=== PATIENT | female | born 1970 | race Caucasian/White ===

== ENCOUNTER → 2017-10-25 13:32 | Outpatient (CLI) | payer SELFPAY ==
--- NOTE | 2017-10-25 13:34 | RAD_ITS ---
STUDY: X-RAY - LEFT WRIST REASON FOR EXAM: Female, 47 years old. Fracture TECHNIQUE: 3 view(s) of the wrist were obtained. COMPARISON: October 14, 2017 and October 07, 2017 FINDINGS: Stable fractures of the distal radius and ulna. Normal radiocarpal articulation. Normal distal radioulnar articulation. Normal carpal bones. Normal carpal articulations. Normal carpometacarpal articulation of the thumb. Normal second through fifth carpometacarpal articulations. Normal visualized metacarpal bones. There is casting material. RAD/Wrist min 3 Views IMPRESSION: Stable fractures. Electronically Signed: Philipp Mccann MD at 9:08 EST , Service support ,
== END ==
PROVIDERS: PCP Family Medicine; Visit Provider Orthopaedic Surgery
DX: M25.532 Pain in left wrist (principal)
CPT/HCPCS: 73110

== ENCOUNTER → 2017-11-15 12:42 | Outpatient (CLI) | payer SELFPAY ==
--- NOTE | 2017-11-15 12:43 | RAD_ITS ---
STUDY: X-RAY - LEFT WRIST REASON FOR EXAM: Female, 47 years old. Cast removal. TECHNIQUE: 3 view(s) of the wrist were obtained. COMPARISON: Comparison is made with prior examination dated October 25, 2017. FINDINGS: Healing fracture of the distal radial metaphysis. The alignment is maintained. Avulsion fracture of the ulnar styloid. Normal radiocarpal articulation. Normal distal radioulnar articulation. Normal carpal bones. Normal carpal articulations. Normal carpometacarpal articulation of the thumb. Normal second through fifth carpometacarpal articulations. Normal visualized metacarpal bones. The soft tissue structures are unremarkable. RAD/Wrist min 3 Views IMPRESSION: Healing distal radial fracture. The alignment is maintained. Electronically Signed: Alejandro Mariee MD at 15:57 EST Tel [phone], Service support ,
== END ==
PROVIDERS: PCP Family Medicine; Visit Provider Orthopaedic Surgery
DX: S52.502D Unspecified fracture of the lower end of left radius, subsequent encounter for closed fracture with routine healing (principal); S52.602D Unspecified fracture of lower end of left ulna, subsequent encounter for closed fracture with routine healing
CPT/HCPCS: 73110

== ENCOUNTER → 2017-12-13 12:38 | Outpatient (CLI) | payer SELFPAY ==
--- NOTE | 2017-12-13 12:40 | RAD_ITS ---
STUDY: X-RAY - LEFT WRIST REASON FOR EXAM: Female, 47 years old. Fracture. TECHNIQUE: 3 view(s) of the wrist were obtained. COMPARISON: 11/15/2017. FINDINGS: There is a sclerotic band across the distal radial metaphysis consistent with healing fracture. Fracture line is no longer evident. No displacement. No significant impaction. There is dorsal angulation of the articular surface. Diffuse to mineralization. IMPRESSION: Essentially healed distal radial metaphyseal fracture. Electronically Signed: Elier Mcintyre MD at 19:37 EDT , Service support , RAD/Wrist min 3 Views
== END ==
PROVIDERS: PCP Family Medicine; Visit Provider Orthopaedic Surgery
DX: S52.502D Unspecified fracture of the lower end of left radius, subsequent encounter for closed fracture with routine healing (principal); S52.602D Unspecified fracture of lower end of left ulna, subsequent encounter for closed fracture with routine healing
CPT/HCPCS: 73110

== ENCOUNTER → 2018-12-19 08:41 | Outpatient (CLI) | payer SELFPAY ==
[2018-12-18 14:07] VITALS: BMI 19.7
--- NOTE | 2018-12-19 09:00 | RAD_ITS ---
STUDY: X-RAY CHEST REASON FOR EXAM: Female, 48 years old. Chest pain TECHNIQUE: 2 view COMPARISON: None. FINDINGS: The lungs are clear and expanded. There is no demonstrated pleural abnormality. Normal size heart. Normal mediastinum and camille. Normal visualized pulmonary arteries. Normal visualized aortic arch and descending thoracic aorta. Normal visualized thoracic spine. Normal visualized ribs, clavicles, and shoulders. There is no demonstrated abnormality of the visualized soft tissue structures of the upper abdomen. RAD/Chest PA and Lateral IMPRESSION: Normal x-ray examination of the chest. No acute findings in the lungs Electronically Signed: Manuel Holcomb MD at 5:02 EDT Tel , Service support ,
[2018-12-19 09:35] LABS: Absolute Lymphocyte Count 1.74 X10^3/ul (0.83-4.51); Absolute Neutrophil Count 3.2 X10^3/uL (2.0-7.7); Basophil# 0.03 X10^3/uL; Basophil% 0.5 % (0-1); Eosinophil# 0.09 X10^3/uL; Eosinophils% 1.6 % (0-5); Hematocrit 44.1 % (37-47); Lymphocyte # 1.74 X10^3/ul (4.0); Lymphocyte % 31.7 % (19-41); Mean Corp Hgb Conc 31.7 g/gl (32-36); Mean Corpuscular Hgb 29.8 pg (27.0-32.0); Mean Corpuscular Volume 93.8 fL (81-99); Monocyte# 0.46 X10^3/uL; Monocyte% 8.4 % (0-10); Neutrophil # 3.16 X10^3/uL (2.7-7.7); Neutrophil % 57.6 % (47-70); Platelet Count 222 K/mm3 (150-450); RBC Distribution Width CV 12.8 % (11.6-14.6); RBC Distribution Width SD 42.7 fl (35.1-43.9); White Blood Count 5.5 K/mm3 (4.4-11.0)
[2018-12-19 09:37] LABS: Anion Gap 6 (5-15); BUN 15 mg/dL (7-18); BUN/Creat Ratio 22.2 RATIO (10-20); Calcium,Total 10.9 mg/dL (8.5-10.1); Chloride 108 mmol/L (98-107); Creatinine, Serum 0.68 mg/dL (0.55-1.02); EST Glomerular Filtration Rate 99 mL/min (>60); Est Glom Filt Rate - Afr Amer 119 mL/min (>60); Glucose 97 mg/dL (74-106); POSITIVE COUNT NO; POSITIVE DIFFERENTIAL NO; POSITIVE MORPHOLOGY NO; Potassium 4.1 mmol/L (3.5-5.1); Sodium Level 143 mmol/L (136-145)
== END ==
PROVIDERS: Family Provider Family Medicine; PCP Family Medicine; Referring Provider Family Medicine; Visit Provider Family Medicine
DX: R07.9 Chest pain, unspecified (principal); D64.9 Anemia, unspecified
CPT/HCPCS: 36415; 71046; 80048; 85025

== ENCOUNTER → 2018-12-22 11:48 | Outpatient (CLI) | payer SELFPAY ==
[2018-12-18 14:07] VITALS: BMI 19.7
[2018-12-22 14:09] LABS: PTHIN 115.8 pg/mL (18.4-80.1)
== END ==
PROVIDERS: Family Provider Family Medicine; PCP Family Medicine; Referring Provider Family Medicine; Visit Provider Family Medicine
DX: E83.52 Hypercalcemia (principal)
CPT/HCPCS: 36415; 83970

== ENCOUNTER 2019-10-22 03:39 | Emergency (ER) | payer OTHER, SELFPAY ==
[2018-12-18 14:07] VITALS: BMI 19.7
[2019-10-22 03:40] VITALS: BP 142/72; PULSE 75; RESP 16; TEMP 36.8; O2SAT 98; BMI 21.7
--- NOTE | 2019-10-22 03:47 | RAD_ITS ---
STUDY: X-RAY - RIGHT FOOT CLINICAL: Female, 49 years old. FELL -- C/O BRUISING AND SWELLING AREA OF DISTAL RT 3-4 METATARSALS TECHNIQUE: 3 view(s) of the foot. COMPARISON: None. FINDINGS: There is a plantar calcaneal spur and there is a posterior calcaneal enthesophyte at the insertion site of the Achilles'' tendon. Otherwise normal talus, calcaneus, and tarsal bones, Normal visualized subtalar, talonavicular, calcaneocuboid, tarsal and tarsometatarsal articulations. Normal metatarsi. Normal metatarsophalangeal joint of the great toe. Normal tibial and fibular sesamoid bones. Normal interphalangeal joint of the great toe. Normal phalanges of the great toe. Normal second through fifth metatarsophalangeal joints. Normal interphalangeal joints and phalanges of the lesser toes. There is nonspecific soft tissue swelling. RAD/Foot min 3 Views IMPRESSION: No demonstrated fracture, dislocation, or destructive osseous lesion. Electronically Signed: Adam Donis MD at 4:32 EST , Service support ,
--- NOTE | 2019-10-22 03:48 | ED.VIS.GEN ---
History of Present Illness Chief Complaint: Lower Extremity Injury Narrative: This patient is a 49-year-old female who presents with a right foot injury. She went to get out of bed and her leg was asleep which caused her to fall onto her right side. She did not hit her head there was no loss of consciousness no headache or vomiting. She is not anticoagulated. She initially had some mild discomfort at her hip and knee but that seems to be all right now. She had taken ibuprofen and wrapped her foot but it became more painful and she noted significant bruising and swelling so called EMS to be brought here for evaluation. She denies medical history and takes no daily medications except vitamin supplements. Past Medical History - Allergies and Home Meds Allergies/Adverse Reactions: Allergies chlorpheniramine [From [facility]] Allergy (Unknown, Verified 10/22/19 03:44) Unknown phenylephrine [From [facility]] Allergy (Unknown, Verified 10/22/19 03:44) Unknown pseudoephedrine [From [facility]] Allergy (Unknown, Verified 10/22/19 03:44) Unknown pyrilamine [From [facility]] Allergy (Unknown, Verified 10/22/19 03:44) Unknown scopolamine [From [facility]] Allergy (Unknown, Verified 10/22/19 03:44) Unknown sertraline [From Zoloft] Allergy (Verified 10/22/19 03:44) Unknown Sulfa (Sulfonamide Antibiotics) Allergy (Verified 10/22/19 03:44) Unknown Primary Care Physician: Matthew Kolb DO [Primary Care Provider] - Past Medical History: None Smoking Status: Never smoker Review of Systems All systems negative except as indicated General: Denies: Fever Cardiovascular: Denies: Chest pain Respiratory: Denies: Dyspnea Gastrointestinal: Denies: Abdominal pain Musculoskeletal: Reports: - - Right foot pain Neurological: Denies: Headache Physical Exam Vital Signs/Narrative: Vital Signs Temp Pulse Resp BP Pulse Ox 10/22/19 03:40 98.3 F 75 16 142/72 H 98 Inital Vital Signs reviewed: Yes General: Well nourished, Well developed Head: Normocephalic Eyes: EOMI ENT: Moist mucous membranes Neck: Supple Cardiovascular: Regular rate, Regular rhythm Respiratory: No distress Extremities: - - Soft tissue swelling and ecchymosis of the right distal foot near the third fourth and fifth MTPs no focal bony tenderness or bony deformity normal motor function brisk capillary refill normal sensation light touch easily palpable dorsalis pedis pulse Skin: Normal color Neurological: Alert Psychological: Normal affect Diagnostic/Tx/Re-eval Impressions Foot X-Ray 10/22/19 03:47 IMPRESSION: No demonstrated fracture, dislocation, or destructive osseous lesion. Electronically Signed: Adam Donis MD at 4:32 EST , Service support , 10/22/19 03:47 Foot min 3 Views [RAD] Stat - Medical Decision Making X-ray was read as negative. However on my review I am concerned for a possible distal fifth metatarsal fracture. Patient was placed in a postoperative shoe. Patient given crutches. Patient advised to follow-up with orthopedics and was discharged home. ED Disposition - Plan for ED Patient: Disposition: Home or Assisted Living Diagnosis: Fracture of 5th metatarsal Instructions: FRACTURE, Foot Referrals: Matthew Kolb DO [Primary Care Provider] - Srinivasan Montejo DO [STAFF PHYSICIAN] -
[2019-10-22 04:56] VITALS: BP 140/68; PULSE 74; RESP 18; O2SAT 98
== END 2019-10-22 05:45 | disposition home or self-care (01) ==
PROVIDERS: Emergency Provider Emergency Medicine; PCP Family Medicine
DX: S92.351A Displaced fracture of fifth metatarsal bone, right foot, initial encounter for closed fracture (principal); W06.XXXA Fall from bed, initial encounter; Y93.9 Activity, unspecified; Y92.9 Unspecified place or not applicable; Y99.9 Unspecified external cause status; Z88.2 Allergy status to sulfonamides
CPT/HCPCS: 73630; 99284

== ENCOUNTER → 2020-06-14 09:25 | Outpatient (CLI) | payer OTHER, SELFPAY ==
[2020-06-14 09:10] VITALS: BMI 21.7
[2020-06-14 12:40] LABS: PTHIN 65.6 pg/mL (18.4-80.1)
[2020-06-14 17:30] LABS: Xtra Tube EP Lab EXTRA TUBE
== END ==
PROVIDERS: PCP Family Medicine; Visit Provider Family Medicine
DX: E20.9 Hypoparathyroidism, unspecified (principal)
CPT/HCPCS: 36415; 82306; 83970

== ENCOUNTER → 2020-09-13 13:52 | Outpatient (CLI) | payer OTHER, SELFPAY ==
[2020-09-13 08:13] VITALS: BMI 20.6
== END ==
PROVIDERS: PCP Family Medicine; Referring Provider Internal Medicine; Visit Provider Internal Medicine
DX: R05 Cough (principal); R50.9 Fever, unspecified
CPT/HCPCS: 87635; U0003

== ENCOUNTER 2021-05-15 19:27 | Emergency (ER) | payer BC, SELFPAY ==
[2021-04-12 17:23] VITALS: BMI 21.7
[2021-05-15 19:27] VITALS: BP 157/79; PULSE 86; RESP 16; TEMP 37.1; O2SAT 98; BMI 20.6
--- NOTE | 2021-05-15 19:43 | RAD_ITS ---
STUDY: X-RAY - LEFT SCAPULA REASON FOR EXAM: Female, 50 years old. Fall down steps TECHNIQUE: Multiple view(s) of the scapula were obtained. COMPARISON: None. FINDINGS: Normal scapula, including the osseous glenoid rim, acromion, scapular neck, spine, coracoid process, and visualized body. Normal glenohumeral articulation. Normal acromioclavicular joint. Normal visualized humeral head. Normal visualized pulmonary apex. RAD/Scapula IMPRESSION: Normal plain film x-ray examination of the scapula. However, please note that plain films have low accuracy for detection of fractures and CT is the study of choice if clinically discrepant findings are present. Electronically Signed: Kim Leung MD at 20:48 EDT Tel , Service support ,
--- NOTE | 2021-05-15 19:56 | EDS_ITS ---
HPI HPI - Fall History of Present Illness Chief Complaint: Fall Informant: patient Occured/Mechanism Occurred: Hours Mechanism/Context: Yes slip, No cannot recall fall and No prodromal Fall down steps #: 5 Usually ambulates: Without assistance Pain/Injury Pain Location: back and upper extremity (Left shoulder region) Quality of Pain: Dull and Aching Current Severity: Mild Maximum Severity: Severe Worsened by: Movement of the left upper extremity and torso Relieved by: Remaining still minimizes the discomfort Associated Symptoms Associated Symptoms: Negative for Parasthesias, Weakness, Loss of function, Inability to ambulate, Loss of consciousness and Amnesia Narrative Narrative: Patient is a 50-year-old woman with history of migraine headaches, anemia and fractured wrist who presents because she slipped going down steps and flip-flops on the wet steps. She landed on her left side. She states she has swelling of the lower back complains of central low back pain and swelling with abrasion over the left shoulder region. She denies head trauma. Denies neck pain. She denies paresthesia, anesthesia motors. She denies chest pain or shortness of breath. She also complained of left elbow pain initially. She denies abdominal pain. She denies blood in her urine. She denies problems with her balance. She is not on an anticoagulant. Tetanus Immunization: 5-10 years Prior similar symptoms: No Recent Illness/Hospitalization: No [facility] Medical History Acute maxillary sinusitis, unspecified Anemia Fracture of wrist Migraines Home Medications biotin 800 mcg PO DAILY 10/07/17 [History Last Taken Unknown] ferrous sulfate 27 mg iron tablet 27 mg PO DAILY tab 12/18/18 [History Last Taken Unknown] multivitamin with minerals 1 ea PO DAILY 10/22/19 [History Last Taken Unknown] calcium carbonate 500 mg calcium (1,250 mg) chewable tablet 500 mg PO DAILY 06/14/20 [History Last Taken Unknown] cholecalciferol (vitamin D3) 50 mcg (2,000 unit) capsule 50 mcg PO DAILY 06/14/20 [History Last Taken Unknown] glucosamine sulfate 500 mg tablet 500 mg PO BID 06/14/20 [History Last Taken Unknown] atormml-cczddmlybevbc-bwsdnzxc 250 mg-250 mg-65 mg tablet 1 tab PO ONCE 04/12/21 [History Last Taken Unknown] vitamin E acetate 134 mg (200 unit) capsule unit PO 04/12/21 [History Last Taken Unknown] Allergy/AdvReac Type Severity Reaction Status Date / Time chlorpheniramine Allergy Unknown Unknown Verified 05/15/21 19:30 [From [facility]] phenylephrine [From [facility]] Allergy Unknown Unknown Verified 05/15/21 19:30 pseudoephedrine [From [facility]] Allergy Unknown Unknown Verified 05/15/21 19:30 pyrilamine [From [facility]] Allergy Unknown Unknown Verified 05/15/21 19:30 scopolamine [From [facility]] Allergy Unknown Unknown Verified 05/15/21 19:30 sertraline [From Zoloft] Allergy Unknown Verified 05/15/21 19:30 Sulfa (Sulfonamide Allergy Unknown Verified 05/15/21 19:30 Antibiotics) Family History Father Hypertension Diabetes Arthritis A-fib Grandfather Arthritis Mother Breast cancer Dementia Grandmother Diabetes Grandmother CVA (cerebral vascular accident) Surgical History History of bilateral tubal ligation Social History Smoking Status: Never smoker alcohol intake: never substance use type: does not use caffeine: Yes seatbelt use: always do you feel safe at home: Yes 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 ROS ROS ED Constitutional Constitutional ED: Denies chills, fever(s), subjective or sweats Eyes Eyes: Denies blurry vision, change in vision or diplopia ENT ENT ED: Denies ear pain, rhinorrhea or sore throat Cardiovascular Cardiovascular: Denies chest pain, orthopnea, palpitations or racing heartbeat Respiratory/Chest Respiratory/Chest: Denies cough, dyspnea, dyspnea on exertion or orthopnea Gastrointestinal Gastrointestinal: Denies abdominal pain, nausea or vomiting Genitourinary Genitourinary ED: Denies dysuria or hematuria Musculoskeletal Musculoskeletal: Reports back pain; Denies arthralgias, myalgias or neck pain Integumentary Reports Abrasions; Denies abscess or rash Neurologic Neurologic: Denies paresthesias or weakness Hematologic/Lymphatic Hematologic/Lymphatic: Denies easy bleeding or easy bruising EXAM Physical Exam Const Vital Signs: 05/15/21 19:27 Temperature 98.7 F Temperature Source Temporal Pulse Rate 86 Respiratory Rate 16 Blood Pressure 157/79 H Blood Pressure Mean 105 Pulse Ox 98 Oxygen Delivery Method Room Air Positive well nourished and well developed General Appearance ED: well developed HEENT Reports normocephalic and TM's clear HEENT Narrative: There is no septal deviation hematoma. There is no clinical findings of basal skull fracture. atraumatic; Negative for hematoma Tympanic Membrane ED: Yes TM's clear Eyes PERRL and EOMs intact bilaterally Eyes Narrative: There is no subconjunctival hemorrhage. There is no clinical findings of infraorbital General Eye ED: Negative for pale conjunctiva or scleral icterus Neck full ROM, no lymphadenopathy and supple Neck Narrative: There is no tenderness. She has full range of motion without grimacing or hesitation. Chest Wall inspection of chest normal and palpation of chest normal Resp normal respiratory effort and clear to auscultation bilaterally Cardio regular rate, regular rhythm, S1 normal heart sound, S2 normal heart sound and no murmurs GI non-tender, non-distended and no masses GI Narrative: There is no pain no patient of the pelvis. Auscultation: normoactive bowel sounds Palpation: soft Back/Spine no CVA tenderness Back/Spine Narrative: There is a hematoma noted over the lower lumbar region and a small abrasion. Cervical Spine: Negative for cervical spine tenderness Thoracic Spine / Upper Back: Negative for thoracic spinal tenderness Lumbar Spine / Lower Back: lumbar spinal tenderness L2, L3, L4 and L5 Extremity normal to inspection, full ROM, normal capillary refill, no joint enlargement and no clubbing, cyanosis or edema Extremity Narrative: There is soft tissue swelling and tenderness over the spinous process of left scapula. There is no pain the patient over the lateral or medial epicondyle. Is no pain the patient over the olecranon process. There is no pain the patient with a radial head with supination pronation. General Extremety ED: Yes normal exam except as noted General Extremity: normal exam except as noted Right Upper Extremity: Negative for shoulder joint, clavicle, bony scapula, upper arm, elbow joint, lower arm, wrist or hand and digits Left Upper Extremity: bony scapula; Negative for shoulder joint, clavicle, upper arm, elbow joint, lower arm, wrist or hand and digits Right Lower Extremity: No hip joint, No upper leg, No knee joint, No lower leg, No ankle joint and No foot and digits Left Lower Extremity: No hip joint, No upper leg, No knee joint, No lower leg, No ankle joint and No foot and digits Neuro oriented x3, CN's II-XII intact bilaterally, moves all extremities and no sensory deficits noted Neuro Narrative: Axillary, median, radial and ulnar function intact. Jhoan Coma Scale: document GCS findings Spontaneous Obeys Commands Oriented 15 Sensorium / Orientation: alert Motor Exam: strength 5/5 throughout Psych mental status grossly normal and thought process normal Skin Lesions: no lesions Rashes: no rashes Trauma: abrasion MDM MDM MDM Narrative Medical decision making narrative: Since there is obvious trauma over the lumbar region x-ray was obtained to evaluate for fracture and x-ray of the scapula was obtained to evaluate for fracture as well. Patient was offered pain medicine, which she declined. Radiography Diagnostic Testin. Three-view x-ray of the LS-spine reveals no fracture, subluxation or dislocation. There is no evidence of spondylolisthesis or spondylolisthesis. There is no calcification of the aorta. The spaces are symmetric. 2. Three-view x-ray of the scapula reveals no fracture or abnormality. There is no evidence of rib fracture. There is no evidence of pneumothorax involving the apices of the left chest. Discharge Plan Triage Chief Complaint: Fall ED Provider: Jarred Preciado Dx/Rx/DC Orders Clinical Impression: Contusion of lower back and pelvis, initial encounter, Contusion of left scapular region Prescriptions: No Action ferrous sulfate 27 mg iron tablet 27 mg PO DAILY RF: 0 cholecalciferol (vitamin D3) 50 mcg (2,000 unit) capsule 50 mcg PO DAILY RF: 0 glucosamine sulfate [Glucosamine] 500 mg tablet 500 mg PO BID RF: 0 calcium carbonate [Calcium 500] 500 mg calcium (1,250 mg) tablet,chewable 500 mg PO DAILY RF: 0 vitamin E acetate 200 unit capsule PO RF: 0 Excedrin Migraine 250-250-65 mg tablet 1 tab PO ONCE RF: 0 biotin 800 MCG tablet 800 mcg PO DAILY RF: 0 multivitamin with minerals 1 EACH tablet 1 ea PO DAILY RF: 0 Primary Care Provider: Matthew Kolb Referrals: Matthew Kolb, DO [Primary Care Provider] - 1 Week if not improving Activity Restrictions/Additional Instructions: 1. Apply ice 6-8 times a day 2. You may take either 4 ibuprofen tablets every 8 hours for the next 3 to 5 days for pain or to Aleve tablets every 12 hours for the next 3 to 5 days for pain. 3. You may feel worse it hurt in more places and you presently do Disposition Disposition: Home, Self Care
--- NOTE | 2021-05-15 20:05 | RAD_ITS ---
STUDY: X-RAY - LUMBAR SPINE REASON FOR EXAM: Female, 50 years old. Injury/Pain TECHNIQUE: 3 view(s) of the lumbar spine were obtained. COMPARISON: None FINDINGS: Normal lumbar lordosis. There is no substantial scoliosis. There is a normal alignment of the vertebrae. Normal vertebral bodies and endplates. Normal disc space heights. The soft tissue structures are unremarkable. RAD/Lumbar Spine 2 or 3 Views IMPRESSION: Normal x-ray examination of the lumbar spine. Electronically Signed: Kim Leung MD at 20:53 EDT Tel , Service support ,
[2021-05-15] MEDS: Naproxen 250 MG Tablet 500 MG PO (20:57)
== END 2021-05-15 21:05 | disposition home or self-care (01) ==
PROVIDERS: Emergency Provider Emergency Medicine; PCP Family Medicine
DX: S40.012A Contusion of left shoulder, initial encounter (principal); S30.0XXA Contusion of lower back and pelvis, initial encounter; S40.212A Abrasion of left shoulder, initial encounter; W10.9XXA Fall (on) (from) unspecified stairs and steps, initial encounter; D64.9 Anemia, unspecified; J01.00 Acute maxillary sinusitis, unspecified; Z79.82 Long term (current) use of aspirin; Z79.899 Other long term (current) drug therapy; Z23 Encounter for immunization
CPT/HCPCS: 72100; 73010; 91303; 99283

== ENCOUNTER → 2021-07-27 09:07 | Outpatient (CLI) | payer BC, SELFPAY ==
[2021-07-27 12:00] LABS: Absolute Lymphocyte Count 1.51 X10^3/uL (0.83-4.51); Basophil# 0.06 X10^3/uL; Eosinophil# 0.13 X10^3/uL; Eosinophils% 2.1 % (0-5); Hematocrit 41.7 % (37-47); Hemoglobin 13.6 g/dL (12.0-15.0); Lymphocyte # 1.51 X10^3/ul (0.83-4.51); Lymphocyte % 24.4 % (19-41); Mean Corp Hgb Conc 32.6 g/dL (32-36); Mean Corpuscular Hgb 30.9 pg (27.0-32.0); Mean Corpuscular Volume 94.8 fL (81-99); Mean Platelet Vol. 11.1 fl (6.2-12.0); Monocyte# 0.47 X10^3/uL; Monocyte% 7.6 % (0-10); NRBC Flagged by Analyzer 0 % (0-5); Neutrophil # 3.98 X10^3/uL (2.7-7.7); Neutrophil % 64.4 % (47-70); Platelet Count 251 K/mm3 (150-450); RBC Distribution Width CV 11.9 % (11.6-14.6); RBC Distribution Width SD 41.2 fl (35.1-43.9); White Blood Count 6.2 K/mm3 (4.4-11.0)
[2021-07-27 12:26] LABS: ALB/GLOB Ratio 0.9 RATIO (0.9-2.4); AST(SGOT) 21 U/L (15-37); Alanine Aminotransfer ALT/SGPT 32 U/L (13-56); Albumin, Serum 3.7 g/dL (3.2-5.0); Alkaline Phosphatase 95 U/L (45-117); Amylase 43 U/L (25-115); Anion Gap 6 (5-15); BUN 16 mg/dL (7-18); BUN/Creat Ratio 20.9 RATIO (10-20); Calcium,Total 11.9 mg/dL (8.5-10.1); Chloride 107 mmol/L (98-107); Cholesterol 176 mg/dL (200); Creatinine, Serum 0.76 mg/dL (0.55-1.02); EST Glomerular Filtration Rate 85 mL/min (>60); Est Glom Filt Rate - Afr Amer 102 mL/min (>60); Ferritin 280 ng/mL (8-252); Glucose 114 mg/dL (74-106); High Density Lipoprotein 50 mg/dL; Iron 140 ug/dL (50-170); Lipase 66 U/L (73-393); Potassium 4.1 mmol/L (3.5-5.1); Protein, Total 7.7 g/dL (6.4-8.2); Sodium Level 140 mmol/L (136-145); Triglycerides 143 mg/dL; Very Low Density Lipoprotein 29 mg/dL (5-40)
== END ==
PROVIDERS: PCP Family Medicine; Referring Provider Physician Assistant; Visit Provider Physician Assistant
DX: R10.9 Unspecified abdominal pain (principal); R11.0 Nausea
CPT/HCPCS: 36415; 80053; 80061; 82150; 82728; 83540; 83690; 85025

== ENCOUNTER → 2021-09-28 07:17 | Outpatient (CLI) | payer BC, SELFPAY ==
--- NOTE | 2021-09-28 07:19 | BI_ITS ---
MAMMOGRAPHY - BILATERAL SCREENING 3-D TOMOSYNTHESIS REASON FOR EXAM: Female, 50 years old. screening PERTINENT HISTORY: No significant family history. TECHNIQUE: 2-D mammograms and 3-D Tomosynthesis of the breast (s) were performed. CAD was performed. COMPARISON: None. FINDINGS: The breast composition is heterogeneously dense that can obscure small breast masses. Scattered benign calcifications are seen. No dense spiculated masses or suspicious microcalcifications are identified. No architectural distortion is identified. There is no skin thickening or retraction. There has been no significant change since the prior study. BI/SCRN MAMM (CAD)W/BÁRBARA BILAT IMPRESSION: No mammographic signs of malignancy. Routine yearly mammograms recommended. ASSESSMENT CATEGORY: BIRADS Category 1: Negative. A letter regarding these results will be sent to the patient by the facility within 30 days. FOLLOW UP RECOMMENDATION: Yearly follow up mammogram recommended. (A) Approximately 10% of breast cancers are not detected by mammography. A normal mammogram should not delay biopsy of a clinically suspicious abnormality. Electronically Signed: Fili Claudio MD at 9:37 EST Tel , Service support ,
== END ==
PROVIDERS: PCP Family Medicine; Visit Provider Family Medicine
DX: Z12.31 Encounter for screening mammogram for malignant neoplasm of breast (principal)
CPT/HCPCS: 77063; 77067

== ENCOUNTER 2022-01-05 08:29 | Outpatient (CLI) | payer BC, SELFPAY ==
[2022-01-05 10:41] LABS: Absolute Lymphocyte Count 1.65 X10^3/uL (0.83-4.51); Absolute Neutrophil Count 3.8 X10^3/uL (2.0-7.7); Basophil# 0.05 X10^3/uL; Basophil% 0.8 % (0-1); Eosinophil# 0.11 X10^3/uL; Eosinophils% 1.8 % (0-5); Hematocrit 42.7 % (37-47); Hemoglobin 13.9 g/dL (12.0-15.0); Lymphocyte # 1.65 X10^3/ul (0.83-4.51); Mean Corp Hgb Conc 32.6 g/dL (32-36); Mean Corpuscular Hgb 30.8 pg (27.0-32.0); Mean Corpuscular Volume 94.5 fL (81-99); Mean Platelet Vol. 11.2 fl (6.2-12.0); Monocyte# 0.51 X10^3/uL; Monocyte% 8.3 % (0-10); NRBC Flagged by Analyzer 0 % (0-5); Neutrophil # 3.79 X10^3/uL (2.7-7.7); Neutrophil % 61.9 % (47-70); Platelet Count 230 K/mm3 (150-450); RBC Distribution Width CV 11.9 % (11.6-14.6); RBC Distribution Width SD 41.6 fl (35.1-43.9); Red Blood Count 4.52 M/mm3 (4.2-5.4); White Blood Count 6.1 K/mm3 (4.4-11.0)
[2022-01-05 10:43] LABS: Troponin-I HS < 3 pg/mL (3.0-54.0)
[2022-01-05 10:53] LABS: ALB/GLOB Ratio 0.9 RATIO (0.9-2.4); AST(SGOT) 20 U/L (15-37); Alanine Aminotransfer ALT/SGPT 41 U/L (13-56); Albumin, Serum 3.7 g/dL (3.2-5.0); Alkaline Phosphatase 104 U/L (45-117); Anion Gap 5 (5-15); BUN 17 mg/dL (7-18); BUN/Creat Ratio 22.7 RATIO (10-20); Calcium,Total 11.4 mg/dL (8.5-10.1); Chloride 109 mmol/L (98-107); Creatinine, Serum 0.75 mg/dL (0.55-1.02); EST Glomerular Filtration Rate 86 mL/min (>60); Est Glom Filt Rate - Afr Amer 104 mL/min (>60); Glucose 104 mg/dL (74-106); Potassium 3.9 mmol/L (3.5-5.1); Protein, Total 7.7 g/dL (6.4-8.2); Sodium Level 141 mmol/L (136-145); Thyroid Stim Hormone (TSH) 2.86 uIU/mL (0.358-3.74)
== END 2022-01-05 23:59 | disposition home or self-care (01) ==
LOC: BIMLAB 08:30
PROVIDERS: PCP Family Medicine; Referring Provider Physician Assistant; Visit Provider Physician Assistant
DX: R68.89 Other general symptoms and signs (principal)
CPT/HCPCS: 36415; 80053; 84443; 84484; 85025

== ENCOUNTER 2022-01-05 08:49 | Outpatient (CLI) | payer BC, SELFPAY ==
--- NOTE | 2022-01-05 08:53 | EKG12_ITS ---
Test Reason : CP Blood Pressure : / mmHG Vent. Rate : 057 BPM Atrial Rate : 057 BPM P-R Int : 142 ms QRS Dur : 084 ms QT Int : 370 ms P-R-T Axes : 041 068 062 degrees QTc Int : 360 ms Sinus bradycardia Otherwise normal ECG Confirmed by CRUZ BOOTHE, GEOFF ([id number]), publications editor BRETT MELO ([id number]) on 01/05/2022 11:21:31 AM Referred By: Kaylie Jaramillo Confirmed By:GEOFF ARROYO MD
== END 2022-01-05 23:59 | disposition home or self-care (01) ==
LOC: PSN 08:50
PROVIDERS: PCP Family Medicine; Referring Provider Physician Assistant; Visit Provider Physician Assistant
DX: R07.9 Chest pain, unspecified (principal); R00.1 Bradycardia, unspecified
CPT/HCPCS: 93005

== ENCOUNTER → 2022-02-21 | Outpatient (CLI) | payer BC, SELFPAY | END | disposition home or self-care (01) | LOC: LABSPEC 09:12 | PROVIDERS: PCP Family Medicine; Referring Provider Physician Assistant; Visit Provider Physician Assistant | DX: R05.9 Cough, unspecified (principal) | CPT/HCPCS: 87635; U0003; U0005 ==

== ENCOUNTER → 2022-09-25 | Outpatient (CLI) | payer BC, SELFPAY ==
[2022-09-25 15:29] LABS: Vitamin D,25 Hydroxy 33.4 ng/mL
== END | disposition home or self-care (01) ==
LOC: MTLAB 11:44
PROVIDERS: PCP Family Medicine; Referring Provider Family Medicine; Visit Provider Family Medicine
DX: E83.52 Hypercalcemia (principal)
CPT/HCPCS: 36415; 82306

== ENCOUNTER → 2022-09-27 | Outpatient (CLI) | payer BC, SELFPAY ==
[2022-09-28 07:55] LABS: PTHIN 113.5 pg/mL (18.4-80.1)
== END | disposition home or self-care (01) ==
LOC: MTLAB 11:47
PROVIDERS: PCP Family Medicine; Referring Provider Family Medicine; Visit Provider Family Medicine
DX: E83.52 Hypercalcemia (principal)
CPT/HCPCS: 36415; 83970

== ENCOUNTER → 2022-10-05 | Outpatient (CLI) | payer BC, SELFPAY ==
--- NOTE | 2022-10-05 10:18 | BI_ITS ---
MAMMOGRAPHY - BILATERAL SCREENING REASON FOR EXAM: Female, 51 years old. Routine annual screening examination. PERTINENT HISTORY: Mother with breast cancer. TECHNIQUE: Digital bilateral breast bárbara (3D mammographic acquisition) in the CC and MLO projections. 2-D mediolateral oblique (MLO) and craniocaudad (CC) views of both breasts were obtained. CAD: Full Field Digital Mammography with Computer Added Detection was performed. COMPARISON: Comparison is made with prior study dated 09/28/2021. FINDINGS: Breast Composition: The breasts are heterogeneously dense, which may obscure small masses. There are no dominant masses or suspicious calcifications. Stable small benign-appearing bilateral axillary No other significant abnormalities are identified. There has been no significant change since the prior study. BI/SCRN MAMM (CAD)W/BÁRBARA BILAT IMPRESSION: Stable bilateral screening mammogram. Yearly follow-up mammogram recommended. (A) ASSESSMENT CATEGORY: BIRADS Category 2: Benign. A letter regarding these results will be sent to the patient by the facility within 30 days. Approximately 10% of breast cancers are not detected by mammography. A normal mammogram should not delay biopsy of a clinically suspicious abnormality. [id number] Electronically Signed: Alejandro Mariee MD at 12:07 EST ,
== END | disposition home or self-care (01) ==
LOC: OPBI 10:16
PROVIDERS: PCP Family Medicine; Visit Provider Family Medicine
DX: Z12.31 Encounter for screening mammogram for malignant neoplasm of breast (principal); Z80.3 Family history of malignant neoplasm of breast
CPT/HCPCS: 77063; 77067

== ENCOUNTER 2023-03-18 11:46 | Emergency (ER) | payer BC, SELFPAY ==
[2023-03-18 11:47] VITALS: BP 149/72; PULSE 110; RESP 16; TEMP 38.3; O2SAT 96; BMI 21.3
[2023-03-18] MEDS: 0.9% Normal Saline 1,000 ML 1000 ML IV (12:18)
[2023-03-18] MEDS: Ketorolac 30 MG/ML Syringe IV (12:18)
--- NOTE | 2023-03-18 12:42 | CT_ITS ---
HISTORY: Right flank pain. TECHNIQUE: Helically acquired images were obtained of the abdomen and pelvis without oral or IV contrast. A radiation dose optimization technique was used for this scan. 445 images. COMPARISON: None. FINDINGS: LOWER CHEST: Lung bases with mild atelectasis. BOWEL: Mild hiatal hernia. Bowel including appendix nondilated. Moderate stool in the redundant colon. PERITONEUM: No significant free fluid. LIVER/SPLEEN: Liver 21 cm in length. Spleen 14 cm in length. GALLBLADDER/BILIARY TREE: Gallbladder present. KIDNEYS AND URETERS: Moderate right hydroureteronephrosis and perinephric inflammation secondary to two 2 mm distal ureteral calculi and a 3 mm ureterovesical junction calculus. No left nephrolithiasis or hydronephrosis. PANCREAS/ADRENAL GLANDS: Nonenlarged. VESSELS: No abdominal aortic aneurysm. PELVIC ORGANS: Trace air in the urinary bladder. BONES: Degenerative changes of the hips. CT/Abdomen/Pelvis without Cont IMPRESSION: Moderate right hydronephrosis secondary to 2 mm distal ureteral and 3 mm UVJ calculi. Hepatosplenomegaly. Electronically Signed: Jeanne Rosen MD at 13:16 EDT ,
[2023-03-18 12:43] LABS: Absolute Lymphocyte Count 0.62 X10^3/uL (0.83-4.51); Absolute Neutrophil Count 12.5 X10^3/uL (2.0-7.7); Basophil# 0.04 X10^3/uL; Basophil% 0.3 % (0-1); Eosinophil# 0.02 X10^3/uL; Eosinophils% 0.1 % (0-5); Hematocrit 38.6 % (37-47); Hemoglobin 12.2 g/dL (12.0-15.0); Lymphocyte # 0.62 X10^3/ul (0.83-4.51); Lymphocyte % 4.5 % (19-41); Mean Corp Hgb Conc 31.6 g/dL (32-36); Mean Corpuscular Hgb 29.7 pg (27.0-32.0); Mean Corpuscular Volume 93.9 fL (81-99); Mean Platelet Vol. 10.7 fl (6.2-12.0); Monocyte# 0.59 X10^3/uL; Monocyte% 4.2 % (0-10); NRBC Flagged by Analyzer 0 % (0-5); Neutrophil # 12.53 X10^3/uL (2.7-7.7); Neutrophil % 90.1 % (47-70); Platelet Count 224 K/mm3 (150-450); RBC Distribution Width CV 12.2 % (11.6-14.6); RBC Distribution Width SD 42.2 fl (35.1-43.9); Red Blood Count 4.11 M/mm3 (4.2-5.4); White Blood Count 13.9 K/mm3 (4.4-11.0)
[2023-03-18 12:44] LABS: Anion Gap 6 (5-15); BUN 17 mg/dL (7-18); BUN/Creat Ratio 16.7 RATIO (10-20); Calcium,Total 11.3 mg/dL (8.5-10.1); Chloride 103 mmol/L (98-107); Creatinine, Serum 1.02 mg/dL (0.55-1.02); EST Glomerular Filtration Rate 60 mL/min (>60); Est Glom Filt Rate - Afr Amer 73 mL/min (>60); Estimated Creatinine Clearance 59.71 ml/min; Glucose 173 mg/dL (74-106); Potassium 4.1 mmol/L (3.5-5.1); Sodium Level 134 mmol/L (136-145)
[2023-03-18 13:01] VITALS: BP 126/56; PULSE 94; RESP 18; TEMP 37.7; O2SAT 96
[2023-03-18 13:02] LABS: Mucous, Urine 0 SEEN /hpf (<or=2+)
[2023-03-18 13:03] LABS: Color, Urine Yellow (Yellow); Glucose, Dipstick Normal (Normal); Ketone-Dipstick 5 mg/dl (Negative); Leukocyte Esterase-Dipstick 500 /ul (Negative); Nitrite-Dipstick Negative (Negative); Occult Blood-Urine 25 /ul (Negative); Protein-Dipstick 30 mg/dl (Negative); Specific Gravity, Urine 1.015 (1.002-1.030); Urine Bilirubin Dipstick Negative (Negative); Urine Clarity Sl. Cloudy (Clear); Urine Urobilinogen Normal (Normal); Urine pH 6.5 (5.0 - 8.0)
[2023-03-18 13:10] LABS: Bacteria 2+ /hpf (None Seen); Red Blood Cells-Urine 0-5 SEEN /hpf (0-5); Squamous Epithelial Cells - UA 5-10 SEEN /hpf (5-10); White Blood Cells 50-100 SEEN /hpf (0-5)
[2023-03-18 14:00] VITALS: BP 125/56; PULSE 94; RESP 16; TEMP 37.7; O2SAT 97
[2023-03-18] MEDS: Ceftriaxone 1 GM/50 ML BAG IV (14:28)
[2023-03-18] MEDS: Acetaminophen 500 MG Tablet 1000 MG PO (14:28)
--- NOTE | 2023-03-18 14:47 | EDS_ITS ---
HPI History of Present Illness Chief Complaint: Flank Pain Informant: patient Onset/Context/Timing Onset: Weeks (1) Context: Gradual Onset Timing: Intermittent Quality: Dull Location: Right flank Worsened by: Nothing Relieved by: Vomiting Narrative Narrative: Patient presents with right flank pain that has been getting worse over the last week. Patient states it came on gradually. Patient states it has been intermittent over the last week. Patient states the pain is dull. Patient states the pain is over her right flank area but radiates into the right inguinal area. Patient states her pain did get better after vomiting episode today. Patient states nothing makes it worse. Patient states she did feel lightheaded earlier today with the pain. Patient also admits to a mild cough. Patient denies any fevers or chills. [facility] Medical History Acute maxillary sinusitis, unspecified Anemia Fracture of wrist Migraines Home Medications multivitamin with minerals 1 ea PO DAILY 10/22/19 [History Last Taken Unknown] calcium carbonate 500 mg calcium (1,250 mg) chewable tablet (Calcium 500) 500 mg PO DAILY 06/14/20 [History Last Taken Unknown] cholecalciferol (vitamin D3) 50 mcg (2,000 unit) capsule 50 mcg PO DAILY 06/14/20 [History Last Taken Unknown] glucosamine sulfate 500 mg tablet (Glucosamine) 500 mg PO BID 06/14/20 [History Last Taken Unknown] syqwpev-hhbnxdvuyuwng-cjunzswp 250 mg-250 mg-65 mg tablet (Excedrin Migraine) 1 tab PO ONCE 04/12/21 [History Last Taken Unknown] ascorbate calcium (vitamin C) 500 mg tablet 500 mg PO DAILY 08/09/22 [History Last Taken Unknown] magnesium 200 mg tablet 200 mg PO DAILY 08/09/22 [History Last Taken Unknown] escitalopram oxalate 20 mg tablet 20 mg PO DAILY #90 tabs 10/10/22 [Rx Last Taken Unknown] ciprofloxacin HCl 500 mg tablet 500 mg PO BID #14 TABLETS 03/18/23 [Rx Last Taken Unknown] hydrocodone-acetaminophen 5-325mg 5mg-325mg 1 tab PO Q6H PRN PRN Pain 3 days #10 TABLETS 03/18/23 [Rx Last Taken Unknown] Allergy/AdvReac Type Severity Reaction Status Date / Time chlorpheniramine Allergy Unknown Unknown Verified 03/18/23 11:49 [From AlleRx] phenylephrine [From AlleRx] Allergy Unknown Unknown Verified 03/18/23 11:49 pseudoephedrine [From AlleRx] Allergy Unknown Unknown Verified 03/18/23 11:49 pyrilamine [From AlleRx] Allergy Unknown Unknown Verified 03/18/23 11:49 scopolamine [From AlleRx] Allergy Unknown Unknown Verified 03/18/23 11:49 sertraline [From Zoloft] Allergy Unknown Verified 03/18/23 11:49 Sulfa (Sulfonamide Allergy Unknown Verified 03/18/23 11:49 Antibiotics) Family History Father Hypertension Diabetes Arthritis A-fib Grandfather Arthritis Mother Breast cancer Dementia Grandmother Diabetes Grandmother CVA (cerebral vascular accident) Surgical History History of bilateral tubal ligation Social History Smoking Status: Never smoker alcohol intake: never substance use type: does not use caffeine: Yes seatbelt use: always do you feel safe at home: Yes 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 ROS ROS ED Constitutional Constitutional ED: Denies chills or fever(s) Eyes Eyes: Denies blurry vision or change in vision ENT ENT ED: Denies rhinorrhea or sore throat Cardiovascular Cardiovascular: Denies chest pain or palpitations Respiratory/Chest Respiratory/Chest: Reports cough; Denies dyspnea Gastrointestinal Gastrointestinal: Reports nausea and vomiting Genitourinary Genitourinary ED: Reports urinary frequency; Denies dysuria or hematuria Musculoskeletal Musculoskeletal: Reports back pain; Denies neck pain Integumentary Denies abscess or rash Neurologic Neurologic: Denies headache(s) or weakness Allergic/Immunologic Allergic/Immunologic ED: Denies mouth swelling or urticaria EXAM Physical Exam Const Vital Signs: 03/18/23 11:47 03/18/23 13:01 03/18/23 14:00 Temperature 100.9 F H 99.8 F H 99.9 F H Temperature Source Temporal Temporal Temporal Pulse Rate 110 H 94 94 Respiratory Rate 16 18 16 Blood Pressure 149/72 H 126/56 H 125/56 H Blood Pressure Mean 97 79 79 Pulse Ox 96 96 97 Oxygen Delivery Method Room Air Room Air Room Air Positive well nourished and well developed General Appearance ED: well developed and NAD HEENT Reports moist mucous membranes Neck supple and no JVD Resp normal respiratory effort and clear to auscultation bilaterally Cardio regular rate, regular rhythm and no murmurs GI normal to inspection, nondistended, normoactive bowel sounds and non-tender Palpation: soft Back/Spine General Back: CVA tenderness right Extremity normal to inspection General Extremety ED: Negative for edema or tenderness General Extremity: Negative for edema Neuro oriented x3, CN's II-XII intact bilaterally and no sensory deficits noted Sensorium / Orientation: alert Motor Exam: strength 5/5 throughout Psych mental status grossly normal Skin no rashes or lesions noted MDM MDM MDM Narrative Medical decision making narrative: Differential diagnosis includes pyelonephritis, ureteral calculus, renal calculus, and urinary tract infection. CBC will be obtained to assess for leukocytosis and anemia. Basic metabolic profile will be obtained to assess for electrolyte abnormality and renal function. Urinalysis will be obtained to assess for urinary tract infection and hematuria. CT scan of the abdomen pelvis will be obtained to assess for renal calculus and ureteral calculus. Lab Data Attestation: I reviewed the patient's lab results. Lab results narrative: CBC was reviewed. There is a mild leukocytosis of 13.9. Basic metabolic profile was reviewed and was within normal limits. Urinalysis was reviewed. Leukocyte esterase was 500 with 50-100 white blood cells and 2+ bacteria. Labs: Laboratory Results - last 24 hr 03/18/23 03/18/23 03/18/23 12:20 12:20 12:31 WBC 13.9 H RBC 4.11 L Hgb 12.2 Hct 38.6 MCV 93.9 MCH 29.7 MCHC 31.6 L RDW Std Deviation 42.2 RDW Coeff of Doug 12.2 Plt Count 224 MPV 10.7 Immature Gran % (Auto) 0.800 Neut % (Auto) 90.1 H Lymph % (Auto) 4.5 L [place] % (Auto) 4.2 Eos % (Auto) 0.1 Baso % (Auto) 0.3 Absolute Neuts (auto) 12.5 H Absolute Lymphs (auto) 0.62 L Nucleated RBC % 0 Sodium 134 L Potassium 4.1 Chloride 103 Carbon Dioxide 25.0 Anion Gap 6 BUN 17 Creatinine 1.02 Estim Creat Clear Calc 59.71 Est GFR (MDRD) Af Amer 73 Est GFR (MDRD) Non-Af 60 BUN/Creatinine Ratio 16.7 Glucose 173 H Calcium 11.3 H Urine Color Yellow Urine Clarity Sl. Cloudy Urine pH 6.5 Ur Specific [place] 1.015 Urine Protein 30 H Urine Glucose (UA) Normal Urine Ketones 5 H Urine Occult Blood 25 H Urine Nitrite Negative Urine Bilirubin Negative Urine Urobilinogen Normal Ur Leukocyte Esterase 500 H Urine RBC 0-5 SEEN Urine WBC 50-100 SEEN Ur Squamous Epith Cells 5-10 SEEN Urine Bacteria 2+ Urine Mucus 0 SEEN Radiography Diagnostic Testing: Clinical Impression(s) from Imaging Studies Abdomen/Pelvis CT 03/18/23 12:42 IMPRESSION: Moderate right hydronephrosis secondary to 2 mm distal ureteral and 3 mm UVJ calculi. Hepatosplenomegaly. Electronically Signed: Jeanne Rosen MD at 13:16 EDT Reading Location ID and State: [facility] / [place] Tel , Service support , CT scan of the abdomen and pelvis was obtained. There is moderate right hydronephrosis with 2 distal ureteral calculi measuring 2 mm and a UVJ calculus measuring 3 mm. This was interpreted by the radiologist and was also independently reviewed by myself. Treatment and Re-Evaluation :: Patient was given IV fluids and Toradol here. Patient was given a dose of Tylenol. Patient was feeling better on reevaluation. Patient was advised of her findings. Patient was given a dose of Rocephin here prior to discharge. Patient was given a prescription for Cipro. Patient was instructed to drink plenty of fluids. Patient was instructed to follow-up with her primary care physician in 3 to 5 days. Patient was also given referral for urology for follow-up care in 3 to 5 days. Patient was instructed return if worse in any way. Patient understood and was agreeable with the plan. All questions were answered. Discharge Plan Triage Chief Complaint: Flank Pain ED Provider: Don Diaz Dx/Rx/DC Orders Clinical Impression: Calculus of distal right ureter, Urinary tract infection Instructions: ED Cystitis Female Adult, ED Kidney Stone w/ Colic Prescriptions: New hydrocodone-acetaminophen [hydrocodone-acetaminophen] 5-325 mg tablet 1 tab PO Q6H PRN PRN (Reason: Pain) 3 Days Qty: 10 0RF ciprofloxacin HCl [ciprofloxacin HCl] 500 mg tablet 500 mg PO BID Qty: 14 0RF No Action cholecalciferol (vitamin D3) 50 mcg (2,000 unit) capsule 50 mcg PO DAILY glucosamine sulfate [Glucosamine] 500 mg tablet 500 mg PO BID Rx Instructions: administer with meals calcium carbonate [Calcium 500] 500 mg calcium (1,250 mg) tablet,chewable 500 mg PO DAILY Excedrin Migraine 250-250-65 mg tablet 1 tab PO ONCE ascorbate calcium (vitamin C) 500 mg tablet 500 mg PO DAILY magnesium 200 mg tablet 200 mg PO DAILY multivitamin with minerals 1 EACH tablet 1 ea PO DAILY escitalopram oxalate 20 mg tablet 20 mg PO DAILY Qty: 90 1RF Primary Care Provider: Matthew Kolb Referrals: Matthew Kolb DO [Primary Care Provider] - 5-7 Days Mariza Lambert MD [Med Staff - Active Staff] - 3-5 Days Disposition Disposition: Home, Self Care Discharge Date/Time: 03/18/23 15:11
== END 2023-03-18 15:11 | disposition home or self-care (01) ==
PROVIDERS: Emergency Provider Emergency Medicine; PCP Family Medicine; Visit Provider Emergency Medicine
DX: N20.1 Calculus of ureter (principal); N39.0 Urinary tract infection, site not specified
CPT/HCPCS: 74176; 80048; 81001; 85025; 87077; 87086; 87088; 87186; 96361; 96365; 96375; 99283; J7030; J7050; A4216

== ENCOUNTER → 2023-05-01 | Outpatient (CLI) | payer BC, SELFPAY ==
[2023-05-01 15:50] LABS: Mucous, Urine 0 SEEN /hpf (<or=2+); Red Blood Cells-Urine 0 SEEN /hpf (0-5)
[2023-05-01 16:52] LABS: Color, Urine Yellow (Yellow); Glucose, Dipstick Normal (Normal); Ketone-Dipstick Negative (Negative); Leukocyte Esterase-Dipstick 25 /ul (Negative); Nitrite-Dipstick Negative (Negative); Occult Blood-Urine Negative /ul (Negative); Protein-Dipstick Negative (Negative); Specific Gravity, Urine 1.015 (1.002-1.030); Urine Bilirubin Dipstick Negative (Negative); Urine Clarity Cloudy (Clear); Urine Urobilinogen Normal (Normal)
[2023-05-01 17:01] LABS: Amorphous Sediment 3+; Squamous Epithelial Cells - UA 0-5 SEEN /hpf (5-10); White Blood Cells 0-5 SEEN /hpf (0-5)
[2023-05-01 17:02] LABS: Bacteria RARE /hpf (None Seen)
== END | disposition home or self-care (01) ==
LOC: LABSPEC 15:49
PROVIDERS: PCP Family Medicine; Visit Provider Family Medicine
DX: N20.0 Calculus of kidney (principal)
CPT/HCPCS: 81001

== ENCOUNTER → 2023-06-21 | Outpatient (CLI) | payer BC, SELFPAY ==
--- NOTE | 2023-06-21 15:34 | US_ITS ---
STUDY: THYROID ULTRASOUND REASON FOR EXAM: Female, 52 years old. hyperparathyroid TECHNIQUE: Ultrasound evaluation of the thyroid was performed with real-time and static prescott-scale imaging. COMPARISON: None. FINDINGS: RIGHT LOBE: The right lobe of the thyroid gland measures 3.6 x 0.9 x 1.1 cm. There is a homogeneous echotexture. Nodule 1:11 x 3 x 9 mm solid hypoechoic wider than tall smoothly marginated nodule with no echogenic foci (TR 4) in the anterior inferior right lobe and follow-up ultrasound is recommended in one year. LEFT LOBE: The left lobe of the thyroid gland measures 4.0 x 1.0 x 1.0 cm. There is a homogeneous echotexture. Nodule 2:5 x 2 x 3 mm solid hypoechoic wider than tall smoothly margin nodule with no echogenic foci (TR 4) in the anterior medial left lobe consistent with an adenoma. ISTHMUS: The isthmus measures 2 mm thick. . The regional lymph nodes are normal. US/Thyroid IMPRESSION: Multinodular thyroid gland with a dominant nodule right lobe and follow-up ultrasound is recommended in one year. Electronically Signed: Fili Claudio MD at 14:36 EDT ,
== END | disposition home or self-care (01) ==
PROVIDERS: PCP Family Medicine; Referring Provider Family Medicine; Visit Provider Family Medicine
DX: E21.3 Hyperparathyroidism, unspecified (principal)
CPT/HCPCS: 76536

== ENCOUNTER → 2023-07-29 | Outpatient (CLI) | payer BC, SELFPAY ==
[2023-07-29 10:06] LABS: Calcium,Total 11.6 mg/dL (8.5-10.1); Free T3 2.7 pg/mL (2.18-3.98); T4 Total, Thyroxin 6.9 ug/dL (4.8-13.9); Thyroid Stim Hormone (TSH) 3.34 uIU/mL (0.358-3.74)
[2023-07-29 10:10] LABS: PTHIN 80.6 pg/mL (18.4-80.1)
[2023-07-29 10:16] LABS: Vitamin D,25 Hydroxy 62.1 ng/mL
[2023-07-29 10:46] LABS: (24 HR) Urine Calcium 363.6 mg/24 HR (42.0-353.0); 24HR UR TOTAL VOLUME 1200 ml; Calcium Urine pH Range 2; Urine Calcium (Random) 30.3 (Not Estab.)
== END | disposition home or self-care (01) ==
LOC: LABSPEC 08:52 → PAVLAB 09:01
PROVIDERS: PCP Family Medicine; Referring Provider Surgery; Visit Provider Surgery
DX: E21.3 Hyperparathyroidism, unspecified (principal); E04.2 Nontoxic multinodular goiter
CPT/HCPCS: 36415; 81050; 82306; 82310; 82340; 83970; 84436; 84443; 84481

== ENCOUNTER → 2023-09-05 | Outpatient (CLI) | payer BC, SELFPAY ==
--- NOTE | 2023-09-05 08:40 | BD_ITS ---
STUDY: DUAL ENERGY X-RAY ABSORPTIOMETRY / DXA REASON FOR EXAM: Female, 52 years old. Thyroid nodules/labs. TECHNIQUE: Bone Mineral Density (BMD) measurements of lumbar spine and bilateral hips were obtained. COMPARISON: None. FINDINGS: Lumbar Spine (L1-L4): g/cm2 (0.722) / T-score (-3.0) / Z-score (-2.0) Findings are suggestive of osteoporosis with a high fracture risk. Left Femur Total: g/cm2 (0.678) / T-score (-2.2) / Z-score (-1.5) Left Femoral Neck: g/cm2 (0.6-2) / T-score (-2.0) / Z-score (-1.1) Right Femur Total: g/cm2 (0.643) / T-score (-2.5) / Z-score (-1.8) Right Femoral Neck: g/cm2 (0.597) / T-score (-2.3) / Z-score (-1.3) BD/Dexa Bone Density Study IMPRESSION: The patient is considered osteoporotic as outlined below according to World Bc Organization (WHO) criteria with a high fracture risk. Reference Information: The T-score is the number of standard deviations above or below the standard which is normal for young adults at their peak bone mineral density. The World Health Organization (WHO) interprets the T-scores as follows: Above -1 Normal bone density Between -1 and -2.5 Osteopenia Equal to / or below -2.5 Osteoporosis As a practical clinical guideline, osteopenia may be graded as follows: Mild -1 through -1.5 Moderate -1.6 through -2.0 Severe -2.1 through -2.4 The Z-score is the number of standard deviations above or below age-matched controls. A Z-score of less than -1.5 would be considered abnormal. References: 1. NIH Osteoporosis and Related Bone Diseases www osteo.org 2. International Society for Clinical Densitometry www iscd.org 3. National Osteoporosis Foundation www nof.org Electronically Signed: Alejandro Mariee MD at 10:09 EST ,
== END | disposition home or self-care (01) ==
PROVIDERS: PCP Family Medicine; Referring Provider Surgery; Visit Provider Surgery
DX: E21.3 Hyperparathyroidism, unspecified (principal); E83.52 Hypercalcemia
CPT/HCPCS: 77080

== ENCOUNTER → 2024-02-26 | Outpatient (CLI) | payer BC, SELFPAY | END | disposition home or self-care (01) | LOC: LABSPEC 16:42 | PROVIDERS: PCP Family Medicine; Visit Provider Physician Assistant | DX: J06.9 Acute upper respiratory infection, unspecified (principal) | CPT/HCPCS: 87635 ==

== ENCOUNTER → 2024-06-22 | Outpatient (CLI) | payer BC, SELFPAY ==
--- NOTE | 2024-06-22 07:42 | BI_ITS ---
MAMMOGRAPHY - BILATERAL SCREENING REASON FOR EXAM: Female, 53 years old. Routine annual screening examination. PERTINENT HISTORY: Mother with breast cancer. TECHNIQUE: Digital bilateral breast bárbara (3D mammographic acquisition) in the CC and MLO projections. 2-D mediolateral oblique (MLO) and craniocaudad (CC) views of both breasts were obtained. CAD: Full Field Digital Mammography with Computer Added Detection was performed. COMPARISON: Comparison is made with prior study dated April 24, 2023 and September 28, 2021. FINDINGS: Breast Composition: The breasts are heterogeneously dense, which may obscure small masses. There are no dominant masses or suspicious calcifications. Stable small benign appearing bilateral axillary lymph nodes. No other significant abnormalities are identified. There has been no significant change since the prior study. BI/SCRN MAMM (CAD)W/BÁRBARA BILAT IMPRESSION: Stable bilateral screening mammogram. Yearly follow-up mammogram recommended. (A) ASSESSMENT CATEGORY: BIRADS Category 2: Benign. A letter regarding these results will be sent to the patient by the facility within 30 days. Approximately 10% of breast cancers are not detected by mammography. A normal mammogram should not delay biopsy of a clinically suspicious abnormality. [id number] Electronically Signed: Alejandro Mariee MD at 10:55 EDT ,
== END | disposition home or self-care (01) ==
PROVIDERS: PCP Family Medicine; Referring Provider Family Medicine; Visit Provider Family Medicine
DX: Z12.31 Encounter for screening mammogram for malignant neoplasm of breast (principal); Z80.3 Family history of malignant neoplasm of breast
CPT/HCPCS: 77063; 77067

== ENCOUNTER → 2024-08-21 | Outpatient (CLI) | payer BC, SELFPAY ==
--- NOTE | 2024-08-21 09:22 | NM_ITS ---
CLINICAL: 53-year-old female with history of clinical hyperparathyroidism. 99m Tc SESTAMIBI DUAL PHASE PLANAR and SPECT-CT PARATHYROID SCINTIGRAPHY COMPARISON: None available FINDINGS: Following the intravenous administration of 26.8 mCi of 99m Tc sestamibi, planar image acquisitions of the anterior neck at 15 minutes and approximately 3.0 hours post radiopharmaceutical provision and SPECT reconstructions and CT acquisitions obtained at 3.0 hours reveal: 1. Immediate static blood pool acquisitions demonstrate distribution of the radiotracer in the right-left thyroid colloid with accentuated uptake identified in the inferior pole of the right lobe relative to remaining visualized thyroid colloid. 2. Delayed planar images depict near complete symmetric washout of the radiotracer from the right-thyroid bed. There is persistent increased uptake noted caudal to the inferior pole of the right lobe thyroid colloid correlating with the immediate image acquisition findings. Emission computed tomographic reconstructions of the anterior neck and CT acquisitions reveal confirmation of the planar projection findings. NM/Parathyroid SPECT w/ CONCUR CT IMPRESSION: 1. Persistent subtle increased tracer uptake noted in the region of the right anterior neck caudal to the inferior pole of the right lobe thyroid colloid likely represents a low-grade parathyroid adenoma. 2. No other definitive abnormalities are discerned. Electronically Signed: Fili Alvarez DO at 9:52 EST ,
== END | disposition home or self-care (01) ==
PROVIDERS: PCP Family Medicine; Referring Provider Surgery; Visit Provider Surgery
DX: E04.2 Nontoxic multinodular goiter (principal); E21.3 Hyperparathyroidism, unspecified
CPT/HCPCS: 78072; A9500

== ENCOUNTER → 2024-09-04 | Outpatient (CLI) | payer BC, SELFPAY ==
[2024-09-04 11:19] LABS: Calcium,Total 11.7 mg/dL (8.5-10.1)
[2024-09-04 13:48] LABS: PTHIN 189.6 pg/mL (18.4-80.1)
[2024-09-04 14:20] LABS: Vitamin D,25 Hydroxy 30.6 ng/mL
== END | disposition home or self-care (01) ==
LOC: LAB 09:39
PROVIDERS: PCP Family Medicine; Referring Provider Surgery; Visit Provider Surgery
DX: E04.2 Nontoxic multinodular goiter (principal); E21.3 Hyperparathyroidism, unspecified
CPT/HCPCS: 36415; 82306; 82310; 83970

== ENCOUNTER 2024-10-02 05:49 | Day surgery (SDC) | payer BC, SELFPAY ==
--- NOTE | 2024-09-21 08:25 | EKG12_ITS ---
Test Reason : PREOP Blood Pressure : */* mmHG Vent. Rate : 70 BPM Atrial Rate : 70 BPM P-R Int : 144 ms QRS Dur : 78 ms QT Int : 366 ms P-R-T Axes : 66 70 75 degrees QTcB Int : 395 ms Normal sinus rhythm Normal ECG Confirmed by CRUZ BOOTHE, GEOFF ([id number]), art editor ANGELLA NIEVES ([id number]) on 09/21/2024 8:57:51 AM Referred By: Srinivasan Benavidez Confirmed By: GEOFF ARROYO MD
--- NOTE | 2024-09-21 16:34 | PAT.ANE_ITS ---
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 When Was Last Pacemaker Check QUESTION #4 FULL TEXT: You/Your Family Experience fever (hyperthermia) with Anesthesia Last Oral Intake Last Oral intake: Last Oral Intake NPO since Meds taken in AM with sips of water? 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 Female Yes 09/18/24 12:40 HX of Motion Sickness No 09/18/24 12:40 HX of N/V After Surgery No 09/18/24 12:40 Non-Smoker Yes 09/18/24 12:40 Duration of Surgery greater Yes 09/18/24 12:40 than 60 minutes Number of Risk Factors 3 09/18/24 12:40 PONV Score Moderate Risk 09/18/24 12:40 Height & Weight Height & Weight: Anesthesia: Height & Weight Height 5 ft 6 in 09/01/24 09:29 Respiratory Assessment Respiratory Assessment - dental assistant teacher: Respiratory Tract Infection Hx - dental assistant teacher Hx Respiratory Tract Infection No 09/18/24 12:40 STOP Sleep Apnea STOP Sleep Apnea - dental assistant teacher: STOP Sleep Apnea - dental assistant teacher Hx Hypertension No 09/18/24 12:40 Hx Sleep Apnea No 09/18/24 12:40 CPAP BIPAP Do you snore loudly (louder No 09/18/24 12:40 than talking or can be heard Do you often feel tired/ No 09/18/24 12:40 fatigued/ sleepy during daytime? Has anyone observed you stop No 09/18/24 12:40 breathing during sleep? STOP Results Negative 09/18/24 12:40 QUESTION #5 FULL TEXT : Do you snore loudly (louder than talking or can be heard through closed doors)? 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 Specify any problems Hx of Preganancy in last 3 No 09/18/24 12:40 Months Nurse Filling Out Transfusion MGRIFFITH 09/18/24 12:40 & Questions: Date: 09/18/24 09/18/24 12:40 Time: 12:43 09/18/24 12:40 Patient unable to answer at this time (ie. confused, unrespo /Reproduction History /Reproductive History - dental assistant teacher: /Reproductive Hx- dental assistant teacher Hx Now Gestational Age (in weeks): EDC: Hx Hx Para Hx Section SAB PFSH Medical History (Updated 09/18/24 @ 12:52 by Maia Wong) Wears glasses Depression Arthritis History of diverticulitis Gastric reflux Non-smoker History of stress test Kidney stones Acute maxillary sinusitis, unspecified Migraines Fracture of wrist Anemia Home Medications ?Medication ?Instructions ?Recorded ?Last Taken ?Type fexofenadine 60 mg tablet 180 mg PO DAILY PRN ALLERGIES 07/26/23 Unknown History escitalopram oxalate 20 mg tablet 20 mg PO DAILY #90 tabs 09/01/24 Unknown Rx [id number]-bbkhivgskcudp-vwqttkpl 250 1 tab PO Q6H PRN MIGRAINES 09/18/24 Unknown History mg-250 mg-65 mg tablet cholecalciferol (vitamin D3) 50 50 mcg PO DAILY 09/18/24 Unknown History mcg (2,000 unit) capsule (Vitamin D3) docusate sodium 100 mg capsule 100 mg PO BID 09/18/24 Unknown History (Colace) turmeric 400 mg capsule 400 mg PO DAILY 09/18/24 Unknown History Allergy/AdvReac Type Severity Reaction Status Date / Time ciprofloxacin (From Cipro) Allergy Intermediate Other Verified 09/18/24 12:34 hydrocodone Allergy Intermediate Other Verified 09/18/24 12:34 codeine Allergy Mild Nausea Verified 09/18/24 12:34 chlorpheniramine (From Allergy Unknown Unknown Verified 09/18/24 12:34 AlleRx) phenylephrine (From AlleRx) Allergy Unknown Unknown Verified 09/18/24 12:34 pseudoephedrine (From AlleRx) Allergy Unknown Unknown Verified 09/18/24 12:34 pyrilamine (From AlleRx) Allergy Unknown Unknown Verified 09/18/24 12:34 scopolamine (From AlleRx) Allergy Unknown Unknown Verified 09/18/24 12:34 sertraline (From Zoloft) Allergy Unknown Verified 09/18/24 12:34 Sulfa (Sulfonamide Allergy Unknown Verified 09/18/24 12:34 Antibiotics) Family History Father Hypertension Diabetes Arthritis A-fib Grandfather Arthritis Mother Breast cancer Dementia Grandmother Diabetes Grandmother CVA (cerebral vascular accident) Surgical History (Updated 09/18/24 @ 12:40 by Maia Wong) History of wisdom tooth extraction History of surgery History of bilateral tubal ligation Social History Smoking Status: Never smoker alcohol intake: never substance use type: does not use caffeine: Yes seatbelt use: always do you feel safe at home: Yes 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 Audit: Pertinent Findings Pertinent Findings EKG Perinent findings: September 21, 2024. Normal sinus rhythm. Recommendation Anesthesia Recommendation Anesthesia recommendation: OPTIMIZED for anesthesia
[2024-10-02] VITALS (9 sets, daily range): BP systolic 126–139; BP diastolic 60–78; PULSE 69–90; RESP 14–18; TEMP 36.2–36.9; O2SAT 94–199; BMI 22.4
[2024-10-02] MEDS: 0.9% Normal Saline (1000mL) 1,000 ML 15 ML IV (06:24)
--- NOTE | 2024-10-02 06:48 | PRE.ANES_ITS ---
ASA Classification* ASA Classification ASA Classification: 2 Assessment & Plan Anesthesia* Anesthesia Assessment Anesthesia Assessment: Discussed sedation and/or anesthesia options, risks, benefits, and alternatives with patient/parents/legal guardian/POA. Questions invited. The patient/parents/legal guardian/POA seems to understand and agrees to proceed with anesthesia plan. Reviewed the physical assessment, medical history, allergy history and patient home medications list prior to surgery/procedure/anesthetic and documented any changes. Performed airway and anesthesia risk assessments. Anesthesia Type Anesthesia Type: General Anesthesia Focused Assessment* Temperature: 97.8 F Pulse Rate: 69 Blood Pressure: 132/60 Respiratory Rate: 16 Pulse Ox: 94 Airway Assessment Mouth opens: >3 cm Mallampati Score: II Focused Labs Anesthesia Preop lab: CBC WBC 13.9 K/mm3 (4.4-11.0) H 03/18/23 12:20 RBC 4.11 M/mm3 (4.2-5.4) L 03/18/23 12:20 Hgb 12.2 g/dL (12.0-15.0) 03/18/23 12:20 Hct 38.6 % (37-47) 03/18/23 12:20 Plt Count 224 K/mm3 (150-450) 03/18/23 12:20 CHEMISTRY Potassium 4.1 mmol/L (3.5-5.1) 03/18/23 12:20 Sodium 134 mmol/L (136-145) L 03/18/23 12:20 BUN 17 mg/dL (7-18) 03/18/23 12:20 Creatinine 1.02 mg/dL (0.55-1.02) 03/18/23 12:20 Glucose 173 mg/dL (74-106) H 03/18/23 12:20 TSH 3.34 uIU/mL (0.358-3.74) 07/29/23 09:08 COAG Pre-Assessment Diagnosis/Proposed Procedure Planned Operative Procedure(s): Parathyroidectomy w/IONM & PTH monitoring Anesthesia History 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 When Was Last Pacemaker Check QUESTION #4 FULL TEXT: You/Your Family Experience fever (hyperthermia) with Anesthesia Last Oral Intake Last Oral intake: Last Oral Intake NPO since 23:00 10/02/24 06:10 Meds taken in AM with sips of water? Meds patient instructed to take am of surgery PONV PONV - detective lieutenant: PONV - detective lieutenant Female Yes 09/18/24 12:40 HX of Motion Sickness No 09/18/24 12:40 HX of N/V After Surgery No 09/18/24 12:40 Non-Smoker Yes 09/18/24 12:40 Duration of Surgery greater Yes 09/18/24 12:40 than 60 minutes Number of Risk Factors 3 09/18/24 12:40 PONV Score Moderate Risk 09/18/24 12:40 Height & Weight Height & Weight: Anesthesia: Height & Weight Height 5 ft 5 in 10/02/24 06:10 Weight: 61.2 kg 10/02/24 06:10 Body Mass Index (BMI) 22.4 10/02/24 06:10 Respiratory Assessment Respiratory Assessment - detective lieutenant: Respiratory Tract Infection Hx - detective lieutenant Hx Respiratory Tract Infection No 09/18/24 12:40 STOP Sleep Apnea STOP Sleep Apnea - detective lieutenant: STOP Sleep Apnea - detective lieutenant Hx Hypertension No 09/18/24 12:40 Hx Sleep Apnea No 09/18/24 12:40 CPAP BIPAP Do you snore loudly (louder No 09/18/24 12:40 than talking or can be heard Do you often feel tired/ No 09/18/24 12:40 fatigued/ sleepy during daytime? Has anyone observed you stop No 09/18/24 12:40 breathing during sleep? STOP Results Negative 09/18/24 12:40 QUESTION #5 FULL TEXT : Do you snore loudly (louder than talking or can be heard through closed doors)? 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 Specify any problems Hx of Preganancy in last 3 No 09/18/24 12:40 Months Nurse Filling Out Transfusion MGRIFFITH 09/18/24 12:40 & Questions: Date: 09/18/24 09/18/24 12:40 Time: 12:43 09/18/24 12:40 Patient unable to answer at this time (ie. confused, unrespo /Reproduction History /Reproductive History - detective lieutenant: /Reproductive Hx- detective lieutenant Hx Now Gestational Age (in weeks): EDC: Hx Hx Para Hx Section SAB Active Medications Active Medications: Current Medications Generic Name Dose Route Start Last Admin Trade Name Freq PRN Reason Stop Dose Admin Sodium Chloride 1,000 mls @ 15 mls/hr 10/02/24 05:55 10/02/24 06:24 IV 10/07/24 19:14 15 mls/hr .Q48H GENI Administration Protocol [facility] Medical History Wears glasses Depression Arthritis History of diverticulitis Gastric reflux Non-smoker History of stress test Kidney stones Acute maxillary sinusitis, unspecified Migraines Fracture of wrist Anemia Home Medications ?Medication ?Instructions ?Recorded ?Last Taken ?Type fexofenadine 60 mg tablet 180 mg PO DAILY PRN ALLERGIES 07/26/23 09/23/24 History escitalopram oxalate 20 mg tablet 20 mg PO DAILY #90 tabs 09/01/24 10/01/24 Rx oapbcdr-ljctivdnmemig-gsmknjyw 250 1 tab PO Q6H PRN MIGRAINES 09/18/24 Unknown History mg-250 mg-65 mg tablet cholecalciferol (vitamin D3) 50 50 mcg PO DAILY 09/18/24 10/01/24 History mcg (2,000 unit) capsule (Vitamin D3) docusate sodium 100 mg capsule 100 mg PO BID 09/18/24 10/01/24 History (Colace) turmeric 400 mg capsule 400 mg PO DAILY 09/18/24 10/01/24 History Allergy/AdvReac Type Severity Reaction Status Date / Time ciprofloxacin (From Cipro) Allergy Intermediate Other Verified 10/02/24 06:09 hydrocodone Allergy Intermediate Other Verified 10/02/24 06:09 codeine Allergy Mild Nausea Verified 10/02/24 06:09 chlorpheniramine (From Allergy Unknown Unknown Verified 10/02/24 06:09 AlleRx) phenylephrine (From AlleRx) Allergy Unknown Unknown Verified 10/02/24 06:09 pseudoephedrine (From AlleRx) Allergy Unknown Unknown Verified 10/02/24 06:09 pyrilamine (From AlleRx) Allergy Unknown Unknown Verified 10/02/24 06:09 scopolamine (From AlleRx) Allergy Unknown Unknown Verified 10/02/24 06:09 sertraline (From Zoloft) Allergy Unknown Verified 10/02/24 06:09 Sulfa (Sulfonamide Allergy Unknown Verified 10/02/24 06:09 Antibiotics) Family History Father Hypertension Diabetes Arthritis A-fib Grandfather Arthritis Mother Breast cancer Dementia Grandmother Diabetes Grandmother CVA (cerebral vascular accident) Surgical History History of wisdom tooth extraction History of surgery History of bilateral tubal ligation Social History Smoking Status: Never smoker alcohol intake: never substance use type: does not use caffeine: Yes seatbelt use: always do you feel safe at home: Yes 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 Review of Systems (Anesthesia) ROS Narrative System reviewed and no additional complaints, except as documented.
--- NOTE | 2024-10-02 06:54 | PCM.HP.BLA ---
History and Physical Date of Admission: 10/02/24 Date of Service: 09/04/24 MR#: [id number] Acct: [id number] Name: ROSA PERAZA Rep #: [id number] : 1970 Provider: Dr. Srinivasan Benavidez MD Age/Sex: 53/F Location: [facility] Status: Signed Intake Vital Signs 02/25/2415:49 09/01/2409:29 Height 5 ft 6 in 5 ft 6 in Weight: 133 lb BMI 21.4 BP 112/66 Blood Pressure Location Lt brachial Position Sitting Respiration 16 Pulse 82 Pulse Source Monitor Temp 97.5 F L Temp Source Temporal Pulse Oximetry (%) 99 Oxygen Delivery Method room air Intake Visit Reasons: PARATHYROID SCAN RESULTS Chief Complaint: parathyroid scan results Is patient in pain?: No Allergies ciprofloxacin (From Cipro) Allergy (Intermediate, Verified 09/04/24 08:32) Otherhydrocodone Allergy (Intermediate, Verified 09/04/24 08:32) Othercodeine Allergy (Mild, Verified 09/04/24 08:32) Nauseachlorpheniramine (From AlleRx) Allergy (Unknown, Verified 09/04/24 08:32) Unknownphenylephrine (From AlleRx) Allergy (Unknown, Verified 09/04/24 08:32) Unknownpseudoephedrine (From AlleRx) Allergy (Unknown, Verified 09/04/24 08:32) Unknownpyrilamine (From AlleRx) Allergy (Unknown, Verified 09/04/24 08:32) Unknownscopolamine (From AlleRx) Allergy (Unknown, Verified 09/04/24 08:32) Unknownsertraline (From Zoloft) Allergy (Verified 09/04/24 08:32) UnknownSulfa (Sulfonamide Antibiotics) Allergy (Verified 09/04/24 08:32) Unknown Medications ?Medication ?Instructions ?Recorded ?Confirmed ?Type fexofenadine 60 mg tablet 180 mg PO DAILY 07/26/23 09/04/24 History escitalopram oxalate 20 mg tablet 20 mg PO DAILY #90 tabs 09/01/24 09/04/24 Rx PFSH Medical History Kidney stones Acute maxillary sinusitis, unspecified Migraines Fracture of wrist Anemia Surgical History History of bilateral tubal ligation Family History Father Hypertension Diabetes Arthritis A-fibGrandfather ArthritisMother Breast cancer DementiaGrandmother DiabetesGrandmother CVA (cerebral vascular accident) Social History Smoking Status: Never smoker alcohol intake: never substance use type: does not use caffeine: Yes seatbelt use: always do you feel safe at home: Yes 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 HPI HPI HPI: Patient is now a 52-year-old female who presents for evaluation of hyperparathyroidism. They are referred from Dr. Kolb. Ms. Peraza makes a follow-up now long removed from her initial consultation visit 07/26/2023. She states that in the interim since we last saw her she was diagnosed with arthritis of her left knee but is otherwise been healthy. In the same interim she completed DEXA imaging in August 2023 that confirmed a diagnosis of osteoporosis and just last month completed SPECT-CT imaging for localization of her disease process. She adds that she experiences frequent dry mouth and grinding of her teeth and excessive thirst when queried generally about signs of hypercalcemia. Below is recapitulated from patient's consultation visit for ease review: Patient is a 52-year-old female who presents for evaluation of hyperparathyroidism. They are referred from Dr. Kolb. She reports that she was first made aware of some high calcium August 2022, but is not sure what happened to her referral for further evaluation of this issue, initially, and then had a experience of kidney stones in February of this year and the work-up for primary hyperparathyroidism was reinvigorated. Patient has no history of prior DEXA imaging. Patient has no history of pathologic fractures and simply shares that her only bony fracture was a wrist fracture after she slipped on ice a year ago. Patient, as above, history of kidney stones, but reports that the stones passed spontaneously and no stone analysis was performed. Patient has no history of frequent dental caries or chipped teeth. Patient does have a history of brittle fingernails. Patient has no history of GERD. Patient has no history of hypertension. Additional symptoms include: Pertinent negatives of no constipation, no metabolic concerns related to her thyroid, and no compressive symptoms related to her thyroid Patient has no history of prior radiation exposure. Patient does have a family history of other endocrinopathies where she reports her 2 sisters have both required thyroid surgeries?1 a lobectomy and 1 a total thyroidectomy, but reports neither have been found to have thyroid cancer. She denies any history of hyperparathyroidism in the family. Patient does not have a diet high in dairy and reports consumption only of occasional milk and yogurt. Patient's current labs are calcium: 11.3 mg/dL (03/18/2023) range of 10.9-11.9, Vitamin D: 33.4 ng/mL (09/25/2022), PTH: 113.5 pg/mL (09/27/2022) range of 65.6-115.8 Current medications include: Multivitamin only (for products containing calcium). Imaging has that been done thyroid ultrasound on 06/21/2023 and showed a thyroid lobe measuring 3.6 x 0.9 x 1.1 cm. Within this lobe radiology noted a 1.1 x 0.3 x 0.9 mm solid nodule that they rated a TI-RADS 4. The left thyroid lobe measured 4.0 x 1.0 x 1.0 cm. Within this lobe they identified a second nodule measuring 0.5 x 0.2 x 0.3 cm and also characterize this as a TI-RADS 4 nodule. No suspicious parathyroid candidates were mentioned. Patient has not had DEXA imaging. Patient has had renal imaging with CT imaging of the abdomen pelvis on 03/18/2023 which showed evidence of ureterolithiasis and mild hydronephrosis on the right. ROS General General: Yes fatigue; No weight change, appetite, colon cancer, breast cancer or weakness HEENT HEENT: No difficulty swallowing, eye injury, eye surgery, swollen glands or hoarseness Endo Endocrine: No thyroid disease, diabetes mellitus, thyroid cancer, Hair loss, heat intolerance or cold intolerance Skin Skin: No rash or changing moles Musc Musculoskeletal: No back problems, arthritis, rheumatoid arthritis, gout or joint pain Cardio Cardiovascular: No murmur, pacemaker, heart disease, atrial fibrillation, high blood pressure, heart attack, heart stent, palpitations, shortness of breat with exertion or chest pain Psych Psychiatric: Yes depression; No anxiety or hearing voices Resp Respiratory: No shortness of breath, No sleep apnea, No cough, No COPD, No asthma, No emphysema and No wheezing Gastro Gastrointestinal: No abdominal pain, No nausea or vomiting, No diarrhea, No constipation, No blood in stool, No acid reflux, No hemorrhoids, No ulcers, No gallbladder problem and No black,tarry stools Jesus Hematologic: No blood thinners, No blood disorders, No bleeding, Yes anemia and No blood clots Neuro Neurologic: No system reviewed and no additional complaints, except as documented, No as per HPI, No abnormal gait, No abnormal hearing, No abnormal movements, No abnormal speech, No behavioral changes, No burning sensations, No confusion, No convulsions, No disequilibrium, No dizziness, No localized weakness, No frequent falls, No headache(s), No lack of coordination, No loss of vision, No memory loss, No numbness, No other visual disturbances, No radicular pain, No restless legs, No sensory deficit, No syncope, No tingling, No tremor(s), No weakness and No other Exam Const General: cooperative, comfortable and no acute distress Orientation: alert, awake and oriented x3 Neck Other: Ultrasound exam is made of patient's neck and there are subcentimeter solid hypoechoic foci of both the right and left thyroid lobes. However, inferiorly on the right there is a persistent 1.2 x 0.8 x 0.6 cm hypoechoic area that extends from the inferior pole of the thyroid gland and appears vascularized on its superior extent. This is highly suggestive of a parathyroid adenoma Assessment and Plan Assessment and Plan (1) Hyperparathyroidism: Status: Acute Comment: This is a 52-year-old female who has a diagnosis of primary hyperparathyroidism?apparently dating back to approximately 2019?but is making her first official consultation regarding this diagnosis today. She had a experience of kidney stones in February of this year prompting further evaluation. Unfortunately no stone analysis was performed to confirm that these were calcium oxalate stones. I held a lengthy conversation with patient regarding the diagnosis of hyperparathyroidism, the work-up with localization, and the indications for surgery. And drawings were made where applicable to facilitate this discussion. I shared that at this point I believed we needed further investigation of the diagnosis before we could conclude that she had surgical indications. To this end I recommended performing a 24-hour urine study for assessing her 24-hour urine calcium and obtaining DEXA imaging to assess for bone demineralization. If either of these were positive I would recommend further localization studies with the sestamibi scan. Lastly, given that patient's PTH and vitamin D labs are nearly a-year-old, would recommend updating all of her laboratories. Patient expressed understanding of the above discussions and was receptive of these recommendations. In my own bedside ultrasound evaluation I do see a suspicious hypoechoic lesion that may represent a parathyroid adenoma in the mid polar region posterior to the left thyroid lobe. Update 09/04/2024: Patient is now 53 years old and presents with evidence of bone mineral loss on DEXA imaging from a year ago that shows osteoporosis as well as SPECT-CT that localizes an apparent parathyroid adenoma to the right inferior position. I spent part of today's visit providing a review of not only the diagnosis of primary hyperparathyroidism but the specific surgical indications that are present in Ms. Peraza's case. Namely these are history of nephrolithiasis and bone demineralization. I described further how the localization process seems to be complete and perhaps even concordant. In May 2023 patient had a thyroid ultrasound that radiology read as concerning for a 1.2 cm TI-RADS 4 nodule of the right inferior pole, however, in retrospect and with the information given from SPECT-CT imaging I believe this actually represents a separate structure and is patient's parathyroid adenoma. With the surgical indications and apparent concordance with localization I suggested to Ms. Peraza that it was now time to pursue surgery. She shares that she is recently unemployed but still maintains insurance and is ready to have this addressed?especially since she does have more time at her disposal. With his expressed I stated that I would like to obtain updated lab work since our most recent lab work is now 14 months old, but apart from any surprising discovery of low vitamin D,? I would like to plan for minimally invasive parathyroidectomy with intraoperative PTH nerve monitoring. The details of the procedure and its attendant procedure?specific risks (namely recurrent laryngeal nerve injury and hypoparathyroidism) were discussed at length along with hand drawings to illustrate relevant points. All questions were answered to patient's satisfaction. Plan: ? Minimally invasive parathyroidectomy with intraoperative nerve and PTH monitoring. Outpatient disposition planned. ? Repeat vitamin D hydroxy, PTH, and serum calcium I have examined the patient and the H&P has been reviewed. There are no clinical changes since date of exam. Patient's laboratories collected concluding last time's visit show that patient's vitamin D is relatively replete and are further consistent with primary hyperparathyroidism. PTH is pending for this morning but I have provided a review of both the procedure as well as postprocedural expectations. All questions were answered from patient and her friend. Plan to proceed for parathyroidectomy with PTH monitoring this morning.
[2024-10-02 07:16] LABS: PTHIN 131.3 pg/mL (18.4-80.1)
--- NOTE | 2024-10-02 08:00 | PARA_PTH ---
PATIENT: ROSA PERAZA LOC: [facility] U#:[id number] AGE/SX: 53/F ROOM: RE10/02/[address]: Dr. Srinivasan Benavidez MD : 1970 BED: DIS: 10/02/2024 SPEC #: [id number] RECD: 10/02/24 09:16 STATUS: JASON DOUG #: [id number] TIANNA: 10/02/24 08:[address]: Srinivasan Benavidez DEPT: SURGICAL PATHOLOGY RECD BY: Ernesto Baumann ENTERED: 10/02/24 09:16 SP TYPE: PARATHY OTHR DR: Dr. Matthew Kolb, Tissues: Parathyroid Procedures: Frozen Section (charge) Surgery Specimen Level IV HEADER OPERATION: Parathyroidectomy with IONM and PTH monitoring PRE-OP DIAGNOSIS: Hyperparathyroidism TISSUE SUBMITTED: Right inferior parathyroid gland - for confirmation - FROZEN SECTION DIAGNOSIS Right inferior parathyroid gland, excision: Hyperplastic parathyroid gland tissue (0.48gm). 10/02/2024 MICROSCOPIC DIAGNOSIS Right inferior thyroid gland, excision: Hyperplastic parathyroid gland (0.48gm). See comment. MAHSAManny 10/05/2024 COMMENT Normal parathyroid tissue is noted at one edge of the specimen. The findings may represent parathyroid adenoma. Correlation with clinical findings and appropriate follow up are necessary. MICROSCOPIC DESCRIPTION Slides are reviewed. GROSS DESCRIPTION Received fresh for frozen section diagnosis labeled with the patient's name is a specimen designated Right inferior parathyroid gland. The specimen consists of a piece of red nodular tissue weighing 0.48gm and measuring 1.5 x 1.0 x 0.5cm. This specimen is bisected and submitted entirely for frozen section diagnosis in one cassette. SJ.mr 10/02/2024 TC:1 CPT:41410,24316
[2024-10-02] MEDS: Bupivacaine 0.25% 30 ML Vial 10 ML OPERA.SITE (08:14)
[2024-10-02 08:56] LABS: PTHIN 466.1 pg/mL (18.4-80.1)
[2024-10-02 09:32] LABS: PTHIN 30.3 pg/mL (18.4-80.1)
[2024-10-02 09:37] LABS: PTHIN 31.6 pg/mL (18.4-80.1)
--- NOTE | 2024-10-02 09:44 | OP.PCM_ITS ---
Operative Report (Standard) Operative Information Date of Procedure: 10/02/24 Pre-Operative Diagnosis: Primary hyperparathyroidism Post-Operative Diagnosis: Same Surgery/Procedure Performed: Right inferior parathyroidectomy concessions manager: Yes Telegraphic Typewriter Operator Chief: Kenneth Dominguez Tasks completed by architectural administrative assistant: Opening & closing and Retracting Type of Anesthesia: General/Supplemental RN Documented Start/Stop Times: Operation Date: 10/02/24 07:30 Case Time Into Pre-Op 10/02/24 05:51 Out of Pre-Op 10/02/24 07:25 Anesthesia Start 10/02/24 07:30 Into Room 10/02/24 07:30 Procedure Start 10/02/24 08:14 Procedure End 10/02/24 09:45 Anesthesia End 10/02/24 09:53 Out of Room 10/02/24 09:53 Into Recovery 10/02/24 09:57 Out of Recovery 10/02/24 10:51 Into Phase II Recovery 10/02/24 10:52 Out of Phase II 10/02/24 12:56 Procedure Start Time: 08:14 Procedure Stop Time: 09:45 Select all DRAINS/GRAFTS/IMPLANTS that apply: None Estimated Blood Loss: 15 Specimen collected: Yes Description of specimen(s) removed: Right inferior parathyroid Description of surgery: After appropriate identification in the preoperative holding area the patient was brought to the operating room where she was positioned supine on the operating room table. There she was induced with general endotracheal anesthetic. Of note, a preoperative PTH had been obtained and was reported as 131.3. Patient was then intubated using a Nims tube and glide a scope to ensure coaptation between the vocal cords and the Nims tube electrodes. A resistance check confirmed appropriate function of the tube after the electrodes were properly connected to the monitoring box. Patient was then positioned in cervical extension, but adequately supporting the occiput. She was prepped and draped in the usual sterile fashion and a formal timeout followed to confirm patient and the procedure to be performed. A local block was produced with infiltration of local anesthetic and a 4cm transverse incision was made. This was deepened with the use of electrocautery through the platysma. Ultimately the strap muscles were exposed and were from one another as I proceeded with dissection laterally towards the patient's right internal jugular vein. Once this structure was sufficiently exposed I obtained a baseline central vein PTH level. This ultimately returned at 466.1. As I waited this result I returned to the central part of our surgical cavity and divided the sternohyoid muscles along their raphe with electrocautery. I then used blunt dissection to free the sternothyroid muscle from the thyroid capsule of the right thyroid lobe deeply. It became immediately apparent that patient had a large parathyroid gland located just inferiorly to the inferior pole of the thyroid gland. Careful blunt dissection was employed to free the structure from its surrounding soft tissue attachments it was then circumferentially freed so that it remained suspended by its vascular pole only. Then the vascular pole was divided with use of LigaSure. This specimen was passed off the field for frozen section confirmation. (Later, pathology telephoned the room to notify us that indeed this represented a large parathyroid gland weighing 480 mg). As we awaited this result, I irrigated the surgical cavity with sterile water examined for hemostasis. Finding this intact, I also developed the plane between the thyroid capsule and the strap muscles to try to identify the second parathyroid gland on this side. The tracheoesophageal groove was also developed bluntly and I confirmed an intact signal from our right recurrent laryngeal nerve using our Nims monitor. Eventually I did grossly identify what appeared to be a normally proportioned right superior parathyroid gland that was otherwise left intact for its vascular supply. Then right internal jugular ex vivo blood draws were made with a 22-gauge needle and syringe at 10 and 15 minutes. Ultimately these PTH values resulted as 30.3 and 31.6, respectively. Satisfied with this result, the case was terminated and hemostasis was once again confirmed in the surgical bed. Then I performed closure of the neck in layers. The strap muscles were closed with a running 3-0 Vicryl suture to reapproximate the raphe, but a gap was left in the inferior most portion of the strap muscles. Then the platysmal layer was reapproximated with interrupted 3-0 Vicryl. Additional local anesthetic was instilled. The skin was closed using a running 4-0 Monocryl in a subcuticular fashion. Steri-Strips and Telfa OpSite was applied as a dressing. Patient was then awoken from general anesthetic and taken to PACU for ongoing recovery. Surgical Findings: ? Pretracheal location of hyperplastic?appearing right inferior parathyroid ? Grossly normal?appearing right superior parathyroid gland ? Normal Nims signal on right recurrent laryngeal nerve ? Baseline peripheral PTH 131.3, baseline central PTH 466.1, ex vivo PTH at 10 minutes 30.3, ex vivo PTH at 15 minutes 31.6 ? Frozen section confirming hyperplastic parathyroid gland weighing 480 mg Complications Complications: No Admit VTE Documentation VTE Mechan Device Prophylaxis: SCD's
--- NOTE | 2024-10-02 09:48 | EX.PCM.DISCH ---
Discharge Instructions Diet Discharge Diet: No restrictions (However recommend a liquid to soft diet initially postoperatively) Activity Discharge Activity: May Not Drive (While it remains difficult to check blind spots quickly) May shower in (days): 2 Ice area for (Minutes): 20 Lifting Restrictions: No lifting greater than 15 pounds for 2 weeks after surgery Dressing / Incision Call your doctor if your incision/area has: Continuous Slow Oozing, Sudden Increased Bleeding, Increased Pain/ Swelling, Increased Redness and Swelling at the incision site Call your doctor if you observe: Numbness or Tingling Remove Dressing in: 2 days (Please leave Steri-Strips intact until they fall off spontaneously or are taken off at your follow-up visit) Cleanse incision/area with: Soap & Water Follow Up Care Please Follow Up With: Srinivasan Benavidez MD When: 7 days postop Test Results: Test results from this visit will be discussed in further detail at your follow-up appointment, if applicable. Discharge Plan Admission Primary Reason for Your Visit: Parathyroidectomy Attending Provider: Srinivasan Benavidez Primary Care Provider: Matthew Kolb Instructions Additional Instructions / Restrictions: Please take 1 tablet of Tums if experiencing numbness or tingling about the mouth or fingertips and notify Dr. Benavidez's office Print Language: [place]er Discharge Orders/Prescriptions Prescriptions: New calcium carbonate-vitamin D3 [Os-Cristian 500 + D3] 500 mg-15 mcg (600 unit) tablet 2 tab PO BID 14 Days Qty: 56 1RF Continued fexofenadine 60 mg tablet 180 mg PO DAILY PRN (Reason: ALLERGIES) escitalopram oxalate 20 mg tablet 20 mg PO DAILY Qty: 90 2RF cholecalciferol (vitamin D3) [Vitamin D3] 50 mcg (2,000 unit) capsule 50 mcg PO DAILY turmeric 400 mg capsule 400 mg PO DAILY bskkzai-yxlmkwjmryfli-ghdgtcfo 250-250-65 mg tablet 1 tab PO Q6H PRN (Reason: MIGRAINES) docusate sodium [Colace] 100 mg capsule 100 mg PO BID Other Ambulatory Orders: 12 Lead EKG (Routine) Timeframe: [id number] Location: None Selected Ordered By: Dr. Armand Machuca Referrals / Follow Up: Matthew Kolb, [Primary Care Provider] - Disposition Disposition (needs filled in before D/C Order can be placed): Home, Self Care
--- NOTE | 2024-10-02 09:59 | PCM.POST.ANE ---
Anesthesia: Postop Eval I Current Vital Signs Temperature: 97.3 F Pulse Rate: 82 Blood Pressure: 137/69 Respiratory Rate: 16 Pulse Ox: 199 Oxygen Delivery Method: Simple Mask Oxygen Flow Rate (L/min): 6 Assessment Airway patent: Yes Spontaneous unlabored respirations: Yes Mental status: Awake and Calm nausea: No Vomiting: No Anesthesia Complication: No Fluid Hydration Crystalloid volume administer (ml): 1,000 Total IV fluid infused: 1,000 Progress Note Anesthesia document: Postop Eval 1 completed: Yes
[2024-10-02 10:33] LABS: PTHIN 14.6 pg/mL (18.4-80.1)
--- NOTE | 2024-10-02 12:05 | POSTOPAN2_ITS ---
Anesthesia Postop Eval I Sum Postop Eval Completion status Anesthesia document: Postop Eval 1 completed: Yes Anesthesia Postop Eval I Summary Anesthesia Postop Eval I Summary: Anesthesia Postop Eval I: Assessment Summary Airway patent Yes 10/02/24 10:00 PREKINDERGARTEN TEACHER.[email or web address] Spontaneous unlabored Yes 10/02/24 10:00 PREKINDERGARTEN TEACHER.MADELINE respirations Mental status Awake,Calm 10/02/24 10:00 PREKINDERGARTEN TEACHER.MADELINE nausea No 10/02/24 10:00 PREKINDERGARTEN TEACHER.MADELINE Vomiting No 10/02/24 10:00 PREKINDERGARTEN TEACHER.MADELINE Anesthesia Postop Eval I: Fluid Summary Crystalloid volume administer 1,000 10/02/24 10:00 PREKINDERGARTEN TEACHER.MADELINE (ml) Colloids volume administered ( ml) Blood Product volume administered (ml) Total IV fluid infused 1,000 10/02/24 10:00 PREKINDERGARTEN TEACHER.MADELINE Anesthesia Postop Eval I: Summary Notes Anesthesia Complication No 10/02/24 10:00 PREKINDERGARTEN TEACHER.MADELINE Anesthesia Complication Comment: Post-operative progress note Anesthesia: Postop Eval II Evaluation Mental status: Awake Pain Level: 0 nausea: No Vomiting: No
--- NOTE | 2024-10-02 12:05 | PCM.POSTANE2 ---
Anesthesia Postop Eval I Sum Postop Eval Completion status Anesthesia document: Postop Eval 1 completed: Yes Anesthesia Postop Eval I Summary Anesthesia Postop Eval I Summary: Anesthesia Postop Eval I: Assessment Summary Airway patent Yes 10/02/24 10:00 ICU REGISTERED NURSE.[email or web address] Spontaneous unlabored Yes 10/02/24 10:00 ICU REGISTERED NURSE.MADELINE respirations Mental status Awake,Calm 10/02/24 10:00 ICU REGISTERED NURSE.MADELINE nausea No 10/02/24 10:00 ICU REGISTERED NURSE.MADELINE Vomiting No 10/02/24 10:00 ICU REGISTERED NURSE.MADELINE Anesthesia Postop Eval I: Fluid Summary Crystalloid volume administer 1,000 10/02/24 10:00 ICU REGISTERED NURSE.MADELINE (ml) Colloids volume administered ( ml) Blood Product volume administered (ml) Total IV fluid infused 1,000 10/02/24 10:00 ICU REGISTERED NURSE.MADELINE Anesthesia Postop Eval I: Summary Notes Anesthesia Complication No 10/02/24 10:00 ICU REGISTERED NURSE.MADELINE Anesthesia Complication Comment: Post-operative progress note Anesthesia: Postop Eval II Evaluation Mental status: Awake Pain Level: 0 nausea: No Vomiting: No
== END 2024-10-02 12:56 | disposition home or self-care (01) ==
LOC: SDC 05:49 → AC 05:50
PROVIDERS: PCP Family Medicine; Referring Provider Surgery; Visit Provider Surgery
PROC: (CPT 60500; principal; 2024-10-02 07:15)
DX: E21.0 Primary hyperparathyroidism (principal); M17.12 Unilateral primary osteoarthritis, left knee; Z80.3 Family history of malignant neoplasm of breast; D35.1 Benign neoplasm of parathyroid gland; M81.0 Age-related osteoporosis without current pathological fracture; Z98.51 Tubal ligation status
CPT/HCPCS: 60500; 00320; 83970; 88305; 88331; 93005; J2405

== ENCOUNTER → 2024-10-13 | Outpatient (CLI) | payer BC, SELFPAY ==
[2024-10-13 10:31] LABS: Calcium,Total 9.7 mg/dL (8.5-10.1)
[2024-10-13 10:33] LABS: PTHIN 66.9 pg/mL (18.4-80.1)
[2024-10-13 10:36] LABS: Vitamin D,25 Hydroxy 32.4 ng/mL
== END | disposition home or self-care (01) ==
PROVIDERS: PCP Family Medicine; Referring Provider Surgery; Visit Provider Surgery
DX: Z98.890 Other specified postprocedural states (principal); Z90.89 Acquired absence of other organs
CPT/HCPCS: 36415; 82306; 82310; 83970

== ENCOUNTER → 2024-10-26 | Outpatient (CLI) | payer BC, SELFPAY ==
[2024-10-26 13:35] LABS: Calcium,Total 9.8 mg/dL (8.5-10.1)
[2024-10-26 13:40] LABS: PTHIN 82.4 pg/mL (18.4-80.1)
[2024-10-26 14:23] LABS: Vitamin D,25 Hydroxy 37.1 ng/mL
== END | disposition home or self-care (01) ==
LOC: PAVLAB 13:13
PROVIDERS: PCP Family Medicine; Referring Provider Surgery; Visit Provider Surgery
DX: Z98.890 Other specified postprocedural states (principal); Z90.89 Acquired absence of other organs
CPT/HCPCS: 36415; 82306; 82310; 83970

== ENCOUNTER → 2024-11-16 | Outpatient (CLI) | payer BC, SELFPAY ==
[2024-11-16 14:07] LABS: PTHIN 64.6 pg/mL (18.4-80.1)
[2024-11-16 14:11] LABS: Vitamin D,25 Hydroxy 30.3 ng/mL
[2024-11-16 21:43] LABS: Xtra Tube EP Lab EXTRA TUBE
== END | disposition home or self-care (01) ==
LOC: PAVLAB 13:33
PROVIDERS: PCP Family Medicine; Referring Provider Surgery; Visit Provider Surgery
DX: Z98.890 Other specified postprocedural states (principal); Z90.89 Acquired absence of other organs
CPT/HCPCS: 36415; 82306; 82310; 83970

== ENCOUNTER → 2025-01-20 | Outpatient (CLI) | payer BC, SELFPAY ==
[2025-01-20 10:28] LABS: PTHIN 68 pg/mL (11-61)
[2025-01-20 10:30] LABS: Calcium 9.6 mg/dL (7.6-11.0)
== END | disposition home or self-care (01) ==
LOC: PAVLAB 09:38
PROVIDERS: PCP Family Medicine; Referring Provider Surgery; Visit Provider Surgery
DX: Z98.890 Other specified postprocedural states (principal); Z90.89 Acquired absence of other organs
CPT/HCPCS: 36415; 82310; 83970

== ENCOUNTER → 2025-06-23 | Outpatient (CLI) | payer BC, SELFPAY ==
--- NOTE | 2025-06-23 10:00 | BI_ITS ---
EXAM: SCRN MAMM (CAD)W/BÁRBARA BILAT DATE: 06/23/2025 CLINICAL HISTORY: F, Age 54 y/o , SCREENING Mother with breast cancer. TECHNIQUE: Procedure Code: [id number] Modality: MG Procedure: SCRN MAMM (CAD)W/BÁRBARA BILAT COMPARISON: Prior exam(s) dated June 22, 2024.. FINDINGS: TISSUE DENSITY: The breasts are heterogeneously dense, which may obscure small masses. Bilateral Breast Mammographic Findings: No significant masses, calcifications or other abnormalities are identified. Stable small benign-appearing bilateral axillary lymph nodes. No suspicious masses, areas of developing architectural distortion, or suspicious calcifications. There has been no significant interval change. BI/SCRN MAMM (CAD)W/BÁRBARA BILAT IMPRESSION: Stable bilateral screening mammogram. OVERALL FINAL ASSESSMENT BI-RADS 2: BENIGN RECOMMENDATION: Routine annual follow-up in 1 Year Additional Recommendation none A letter with findings and recommendations will be mailed to the patient. Reading Location: [place] [id number]
== END | disposition home or self-care (01) ==
LOC: OPBI 09:33
PROVIDERS: PCP Family Medicine; Referring Provider Nurse Practitioner Women's Health; Visit Provider Nurse Practitioner Women's Health
DX: Z12.31 Encounter for screening mammogram for malignant neoplasm of breast (principal); Z80.3 Family history of malignant neoplasm of breast
CPT/HCPCS: 77063; 77067